=== PATIENT | female | born 1935 | race Native Hawaiian/Other Pacific Islander ===

== ENCOUNTER 2021-09-17 16:02 | Emergency (ER) | payer MEDICARE ==
[2021-09-17 16:09] VITALS: TEMP 97.5
--- NOTE | 2021-09-17 16:15 | ED ---
General Adult HPI - General Chief complaint: Abdominal Pain Stated complaint: Abd/L sided pain, PASQUALE Time Seen by Provider: 09/17/21 16:15 Source: patient Mode of arrival: wheelchair Limitations: no limitations - History of Present Illness Initial comments: Shante Ramirez a pleasant 85-year-old female who presents the ER today with her daughter for evaluation of right flank and abdominal pain. Patient reports she began having pain in her right flank a week ago, she was putting a topical pain cream as well as heating pad on her back which seemed to help however the past week pain is progressed. Today patient states she couldn't even get out of bed which is very atypical for her so her daughter brought her in for evaluation. Patient describes the pain as being in the right flank traveling around the epigastrium. No associated nausea vomiting diarrhea or change in bowel or bladder habits. She does report worse pain with deep inspiration. No shortness of breath, she is supposed wears supplemental oxygen is not compliant with this at home. - Related Data Home Medications Medication Instructions Recorded Confirmed Fluticasone/Umeclidin/Vilanter 1 puff INHALATION RT-DAILY 09/17/21 09/17/21 [Trelegy Ellipta 100-62.5-25] Levothyroxine Sodium [Synthroid] 100 mcg PO DAILY 09/17/21 09/17/21 Previous Rx's Medication Instructions Recorded Lidocaine [Lidoderm 5% Patch] 1 patch TRANSDERM DAILY #30 patch 09/17/21 Allergies Allergy/AdvReac Type Severity Reaction Status Date / Time No Known Allergies Allergy Verified 09/17/21 19:58 Review of Systems ROS Statement: Those systems with pertinent positive or pertinent negative responses have been documented in the HPI. ROS Other: All systems not noted in ROS Statement are negative. Past Medical History Past Medical History: COPD, Thyroid Disorder History of Any Multi-Drug Resistant Organisms: None Reported Past Surgical History: No Surgical Hx Reported Past Psychological History: No Psychological Hx Reported Smoking Status: Former smoker Past Alcohol Use History: None Reported Past Drug Use History: None Reported General Exam - General Exam Comments Initial Comments: Physical Exam GENERAL: Patient is well-developed and well-nourished. Patient is nontoxic and well-hydrated and is in no distress. HENT: Normocephalic, Atraumatic. EYES: PERRL, EOMI PULMONARY: Unlabored respirations. No audible rales rhonchi or wheezing was noted. CARDIOVASCULAR: There is a regular rate and rhythm ABDOMEN: Soft and nontender with normal bowel sounds. SKIN: Skin is clear with no lesions or rashes and otherwise unremarkable. : Deferred NEUROLOGIC: Patient is alert and oriented x3. Moving all extremities spontaneously MUSCULOSKELETAL: Normal extremities with adequate strength and full range of motion. No lower extremity swelling or edema. No calf tenderness. PSYCHIATRIC: Normal psychiatric evaluation. Limitations: no limitations Course Vital Signs 09/17/21 09/17/21 09/17/21 16:04 18:52 21:53 Temperature 97.5 F L Pulse Rate 95 80 70 Respiratory 24 22 14 Rate Blood Pressure 156/83 126/78 143/88 O2 Sat by Pulse 93 L 96 97 Oximetry EKG Findings - EKG Comments: EKG Findings:: EKG was obtained at 1615 rate is 70 to have a sinus, a short OK at 119, QRS [address] elevations or depressions no evidence of acute ischemia or infarction. Medical Decision Making - Medical Decision Making Patient was seen and evaluated, history is obtained from the patient and daughters at bedside Labs x-rays and CT scans were ordered and results with no acute findings Results were discussed with the patient and family who expressed relief patient comfortable with plan for Lidoderm patches outpatient follow-up with primary care and possibly a spine surgeon as she suspects that she may have discussed di sease as the cause of her pain. - Lab Data Result diagrams: 09/17/21 16:59 09/17/21 16:59 Lab Results 09/17/21 09/17/21 09/17/21 Range/Units 16:59 16:59 16:59 WBC 5.9 (3.8-10.6) k/uL RBC 4.44 (3.80-5.40) m/uL Hgb 13.7 (11.4-16.0) gm/dL Hct 41.6 (34.0-46.0) % MCV 93.7 (80.0-100.0) fL MCH 30.9 (25.0-35.0) pg MCHC 33.0 (31.0-37.0) g/dL RDW 14.2 (11.5-15.5) % Plt Count 326 (150-450) k/uL MPV 6.9 Neutrophils % 61 % Lymphocytes % 29 % Monocytes % 7 % Eosinophils % 1 % Basophils % 0 % Neutrophils # 3.6 (1.3-7.7) k/uL Lymphocytes # 1.7 (1.0-4.8) k/uL Monocytes # 0.4 (0-1.0) k/uL Eosinophils # 0.1 (0-0.7) k/uL Basophils # 0.0 (0-0.2) k/uL Sodium 131 L (137-145) mmol/L Potassium 4.5 (3.5-5.1) mmol/L Chloride 95 L (98-107) mmol/L Carbon Dioxide 34 H (22-30) mmol/L Anion Gap 2 mmol/L BUN 9 (7-17) mg/dL Creatinine 0.60 (0.52-1.04) mg/dL Est GFR (CKD-EPI)AfAm >90 (>60 ml/min/1.73 sqM) Est GFR (CKD-EPI)NonAf 83 (>60 ml/min/1.73 sqM) Glucose 98 (74-99) mg/dL Plasma Lactic Acid Rolnad 0.8 (0.7-2.0) mmol/L Calcium 8.9 (8.4-10.2) mg/dL Total Bilirubin 0.2 (0.2-1.3) mg/dL AST 24 (14-36) U/L ALT 12 (4-34) U/L Alkaline Phosphatase 77 (38-126) U/L Total Protein 6.4 (6.3-8.2) g/dL Albumin 3.9 (3.5-5.0) g/dL Lipase 34 (23-300) U/L Urine Color Urine Appearance (Clear) Urine pH (5.0-8.0) Ur Specific [place] (1.001-1.035) Urine Protein (Negative) Urine Glucose (UA) (Negative) Urine Ketones (Negative) Urine Blood (Negative) Urine Nitrite (Negative) Urine Bilirubin (Negative) Urine Urobilinogen (<2.0) mg/dL Ur Leukocyte Esterase (Negative) Urine RBC (0-5) /hpf Urine WBC (0-5) /hpf Ur Squamous Epith Cells (0-4) /hpf Urine Bacteria (None) /hpf 09/17/21 Range/Units 18:16 WBC (3.8-10.6) k/uL RBC (3.80-5.40) m/uL Hgb (11.4-16.0) gm/dL Hct (34.0-46.0) % MCV (80.0-100.0) fL MCH (25.0-35.0) pg MCHC (31.0-37.0) g/dL RDW (11.5-15.5) % Plt Count (150-450) k/uL MPV Neutrophils % % Lymphocytes % % Monocytes % % Eosinophils % % Basophils % % Neutrophils # (1.3-7.7) k/uL Lymphocytes # (1.0-4.8) k/uL Monocytes # (0-1.0) k/uL Eosinophils # (0-0.7) k/uL Basophils # (0-0.2) k/uL Sodium (137-145) mmol/L Potassium (3.5-5.1) mmol/L Chloride (98-107) mmol/L Carbon Dioxide (22-30) mmol/L Anion Gap mmol/L BUN (7-17) mg/dL Creatinine (0.52-1.04) mg/dL Est GFR (CKD-EPI)AfAm (>60 ml/min/1.73 sqM) Est GFR (CKD-EPI)NonAf (>60 ml/min/1.73 sqM) Glucose (74-99) mg/dL Plasma Lactic Acid Roland (0.7-2.0) mmol/L Calcium (8.4-10.2) mg/dL Total Bilirubin (0.2-1.3) mg/dL AST (14-36) U/L ALT (4-34) U/L Alkaline Phosphatase (38-126) U/L Total Protein (6.3-8.2) g/dL Albumin (3.5-5.0) g/dL Lipase (23-300) U/L Urine Color Light Yellow Urine Appearance Clear (Clear) Urine pH 6.5 (5.0-8.0) Ur Specific [place] 1.008 (1.001-1.035) Urine Protein Negative (Negative) Urine Glucose (UA) Negative (Negative) Urine Ketones Negative (Negative) Urine Blood Small H (Negative) Urine Nitrite Negative (Negative) Urine Bilirubin Negative (Negative) Urine Urobilinogen <2.0 (<2.0) mg/dL Ur Leukocyte Esterase Negative (Negative) Urine RBC 3 (0-5) /hpf Urine WBC 1 (0-5) /hpf Ur Squamous Epith Cells 2 (0-4) /hpf Urine Bacteria Rare H (None) /hpf Disposition Clinical Impression: Back pain, Abdominal pain Disposition: HOME SELF-CARE Condition: Stable Additional Instructions: Follow up with primary care, consider follow up with a spine doctor for pain management Prescriptions: Lidocaine [Lidoderm 5% Patch] 1 patch TRANSDERM DAILY #30 patch Is patient prescribed a controlled substance at d/c from ED?: No Referrals: Tameka Mendosa MD [Primary Care Provider] - 1-2 days Hank Jimenez DO [Doctor of Osteopathic Medicine] - 1-2 days Kim Patton DO [Doctor of Osteopathic Medicine] - 1-2 days
[2021-09-17] MEDS ORDERED: SODIUM CHLORIDE 0.9% 500 ML 500 ML IV STA (16:45)
[2021-09-17] MEDS ORDERED: ONDANSETRON 4 MG/2 ML VIAL IVP STA (16:46)
[2021-09-17] MEDS ORDERED: MORPHINE SULFATE 4 MG/ML SYRINGE IVP STA (16:46)
[2021-09-17 17:05] LABS: Basophils % (A) 0 %; Eosinophils # (A) 0.1 k/uL (0-0.7); Eosinophils % (A) 1 %; HCT 41.6 % (34.0-46.0); HGB 13.7 gm/dL (11.4-16.0); Lymphocytes # (A) 1.7 k/uL (1.0-4.8); Lymphocytes % (A) 29 %; MCH 30.9 pg (25.0-35.0); MCV 93.7 fL (80.0-100.0); Mean Platelet Volume 6.9; Monocytes # (A) 0.4 k/uL (0-1.0); Monocytes % (A) 7 %; Neutrophils # (A) 3.6 k/uL (1.3-7.7); Neutrophils % (A) 61 %; Platelet Count 326 k/uL (150-450); RBC 4.44 m/uL (3.80-5.40); RDW 14.2 % (11.5-15.5); WBC 5.9 k/uL (3.8-10.6)
[2021-09-17 17:20] LABS: ALT 12 U/L (4-34); AST 24 U/L (14-36); African American GFR (CKD) >90 (>60 ml/min/1.73 sqM); Albumin 3.9 g/dL (3.5-5.0); Alkaline Phosphatase 77 U/L (38-126); Anion Gap 2 mmol/L; Blood Urea Nitrogen 9 mg/dL (7-17); Calcium 8.9 mg/dL (8.4-10.2); Carbon Dioxide 34 mmol/L (22-30); Chloride 95 mmol/L (98-107); Glucose 98 mg/dL (74-99); Lipase 34 U/L (23-300); Non-African American GFR(CKD) 83 (>60 ml/min/1.73 sqM); Potassium 4.5 mmol/L (3.5-5.1); Sodium 131 mmol/L (137-145); Total Bilirubin 0.2 mg/dL (0.2-1.3); Total Protein 6.4 g/dL (6.3-8.2)
--- NOTE | 2021-09-17 17:34 | XR ---
EXAMINATION TYPE: XR KUB DATE OF EXAM: 09/17/2021 5:19 PM INDICATION: Patient age:Female; 85 years old; Reason for study: abdominal pain; COMPARISON: None. TECHNIQUE: One radiographic view of the abdomen was obtained. FINDINGS: Multiple metallic screws are seen projecting over the sacrum. Surgical clips are in the rig ht upper quadrant. The bowel gas pattern is nonspecific without dilated loops of small or large bowel . The osseous structures are intact. No abnormal calcifications are present. Fecal material and gas are demonstrated throughout the colon and rectum. Multilevel disc degeneration changes are seen thro ughout the spine with scoliosis convex L2. IMPRESSION: Nonspecific bowel gas pattern without radiographic evidence for acute process.
--- NOTE | 2021-09-17 17:39 | XR ---
EXAMINATION TYPE: XR chest 2V DATE OF EXAM: 09/17/2021 5:19 PM COMPARISON: None TECHNIQUE: XR chest 2V Frontal and lateral views of the chest. CLINICAL INDICATION:Female, 85 years old with history of abdominal pain; FINDINGS: Lungs/Pleura: There is flattening of the diaphragm with increased lucency of the lungs. No evidence o f pneumothorax, pleural effusion or focal consolidation. Pulmonary vascularity: Unremarkable. Heart/mediastinum: Cardiomediastinal silhouette is unremarkable. Musculoskeletal: No acute osseous pathology. IMPRESSION: 1. No acute cardiopulmonary disease process. 2. Moderate to severe COPD changes.
[2021-09-17 18:47] LABS: Appearance,Urine Clear (Clear); Bacteria,Urine Rare /hpf; Bilirubin,Urine Negative (Negative); Blood,Urine Small (Negative); Color,Urine Light Yellow; Glucose,Urine (UA) Negative (Negative); Ketones,Urine Negative (Negative); Leukocyte Esterase,Urine Negative (Negative); Nitrite,Urine Negative (Negative); PH, Urine 6.5 (5.0-8.0); Protein,Urine Negative (Negative); RBC,Urine 3 /hpf (0-5); Specific Gravity,Urine 1.008 (1.001-1.035); Squamous Epithelial Cell,Urine 2 /hpf (0-4); Urobilinogen,Urine <2.0 mg/dL (<2.0); WBC,Urine 1 /hpf (0-5)
--- NOTE | 2021-09-17 19:26 | CT ---
EXAMINATION TYPE: CT abdomen pelvis w con DATE OF EXAM: 09/17/2021 COMPARISON: 05/10/2014 HISTORY: Abdominal pain CT DLP: 500 mGycm Automated exposure control for dose reduction was used. TECHNIQUE: Helical acquisition of images was performed from the lung bases through the pelvis. CONTRAST: Performed without Oral Contrast and with IV Contrast, patient injected with 100 mL of Isovue 300. FINDINGS: LUNG BASES: No significant abnormality is appreciated. LIVER/GB: No acute abnormality is appreciated. Cholecystectomy. Stable mild prominence of the common bile duct measuring 6 mm in diameter. PANCREAS: No significant abnormality is seen. SPLEEN: No significant abnormality is seen. ADRENALS: No significant abnormality is seen. KIDNEYS: No significant abnormality is seen. FREE AIR: No free air is visualized. RETROPERITONEAL ADENOPATHY: None visualized REPRODUCTIVE ORGANS: No significant abnormality is seen URINARY BLADDER: No significant abnormality is seen. PELVIC ADENOPATHY: None visualized. OSSEOUS STRUCTURES: No acute abnormality is seen. Posterior fixation screws at L5 through S3 level s een. Moderate to severe lumbar spondylosis. BOWEL: No significant abnormality is seen. OTHER: None IMPRESSION: NO DEFINITE ACUTE ABNORMALITY. CHRONIC AND INCIDENTAL FINDINGS ABOVE.
[2021-09-17] MEDS ORDERED: LIDOCAINE 5% PATCH TOPICAL STA (20:52)
[2021-09-17 21:58] VITALS: BP 143/88; PULSE 70; RESP 14
== END 2021-09-17 22:11 | disposition home or self-care (01) ==
LOC: EDBD → MERGE 16:02 → EC 16:02
DX: R10.9 Unspecified abdominal pain (principal); M54.50 Low back pain, unspecified; J44.9 Chronic obstructive pulmonary disease, unspecified; E07.9 Disorder of thyroid, unspecified; Z79.1 Long term (current) use of non-steroidal anti-inflammatories (NSAID); Z87.891 Personal history of nicotine dependence
CPT/HCPCS: 36415; 93005; 80053; 83605; 83690; 85025; 81001; 71046; 74018; 74177; 96374; 96375; 99284; J2270; J2405; Q9967

== ENCOUNTER 2021-09-20 13:58 | Inpatient (IN) | payer MEDICARE ==
[2021-09-20] MEDS ORDERED: ALBUTEROL NEBULIZED 2.5 MG/3 ML INHALATION STA (14:09)
[2021-09-20] MEDS ORDERED: methylPREDNISolone SOD SUCCI 125 MG/2 ML VIAL IV STA (14:09)
[2021-09-20] MEDS ORDERED: IPRATROPIUM 0.5 MG/2.5 ML NEBU INHALATION STA (14:09)
[2021-09-20 14:28] LABS: Basophils % (A) 0 %; Eosinophils % (A) 0 %; HCT 41.4 % (34.0-46.0); HGB 13.1 gm/dL (11.4-16.0); Lymphocytes # (A) 0.5 k/uL (1.0-4.8); Lymphocytes % (A) 4 %; MCH 30.4 pg (25.0-35.0); MCHC 31.7 g/dL (31.0-37.0); Mean Platelet Volume 7.3; Monocytes # (A) 0.5 k/uL (0-1.0); Monocytes % (A) 5 %; Neutrophils # (A) 10.1 k/uL (1.3-7.7); Neutrophils % (A) 90 %; Platelet Count 285 k/uL (150-450); RBC 4.31 m/uL (3.80-5.40); RDW 14.4 % (11.5-15.5); WBC 11.2 k/uL (3.8-10.6)
--- NOTE | 2021-09-20 14:29 | ED ---
General Adult HPI - General Chief complaint: Shortness of Breath Stated complaint: SOB Time Seen by Provider: 09/20/21 14:03 Source: patient, EMS, RN notes reviewed, old records reviewed Mode of arrival: EMS - History of Present Illness Initial comments: 85-year-old female history of oxygen dependent COPD presents with progressive dyspnea over the past several weeks. There's been no reported cough. Patient denies central chest pain. She has some chronic back pain which is unchanged and bilateral shoulder pain. No fever. No lower extremity pain or swelling. - Related Data Home Medications Medication Instructions Recorded Confirmed Fluticasone/Umeclidin/Vilanter 1 puff INHALATION RT-DAILY 09/17/21 09/20/21 [Trelegy Ellipta 100-62.5-25] Levothyroxine Sodium [Synthroid] 100 mcg PO DAILY 09/17/21 09/20/21 Cyclobenzaprine [Flexeril] 5 mg PO TID 09/20/21 09/20/21 HYDROcodone/APAP 5-325MG [[place] 1 tab PO QID 09/20/21 09/20/21 5-325] Allergies Allergy/AdvReac Type Severity Reaction Status Date / Time No Known Allergies Allergy Verified 09/20/21 15:41 Review of Systems ROS Statement: Those systems with pertinent positive or pertinent negative responses have been documented in the HPI. ROS Other: All systems not noted in ROS Statement are negative. Past Medical History Past Medical History: COPD, Thyroid Disorder Additional Past Medical History / Comment(s): irregular heart beat History of Any Multi-Drug Resistant Organisms: None Reported Past Surgical History: Back Surgery, Cholecystectomy, Hysterectomy, No Surgical Hx Reported Additional Past Surgical History / Comment(s): thyroid partial removal Past Anesthesia/Blood Transfusion Reactions: No Reported Reaction Past Psychological History: No Psychological Hx Reported Smoking Status: Former smoker Past Alcohol Use History: None Reported, Occasional Past Drug Use History: None Reported - Past Family History Mother Family Medical History: Cancer Additional Family Medical History / Comment(s): Breast cancer, stomach cancer General Exam General appearance: alert, in distress Head exam: Present: atraumatic, normocephalic Eye exam: Present: normal appearance, PERRL ENT exam: Present: normal exam Neck exam: Present: normal inspection. Absent: tenderness, meningismus Respiratory exam: Present: respiratory distress, accessory muscle use, decreased breath sounds Cardiovascular Exam: Present: regular rate, normal rhythm GI/Abdominal exam: Present: soft. Absent: distended, tenderness, guarding Extremities exam: Present: normal inspection, normal capillary refill. Absent: pedal edema, calf tenderness Neurological exam: Present: alert, oriented X3, CN II-XII intact. Absent: motor sensory deficit Psychiatric exam: Present: normal affect, normal mood Skin exam: Present: warm, dry, intact. Absent: cyanosis, diaphoretic Course Vital Signs 09/20/21 09/20/21 09/20/21 14:01 14:42 15:00 Temperature 98.1 F Pulse Rate 91 92 106 H Respiratory 18 Rate Blood Pressure O2 Sat by Pulse 92 L Oximetry Fraction of Inspired Oxygen (FIO2) 09/20/21 09/20/21 09/20/21 15:06 15:08 15:18 Temperature Pulse Rate 114 H Respiratory 26 H 28 H Rate Blood Pressure O2 Sat by Pulse 92 L Oximetry Fraction of 30 Inspired Oxygen (FIO2) 09/20/21 15:27 Temperature Pulse Rate 115 H Respiratory 24 Rate Blood Pressure 136/81 O2 Sat by Pulse 97 Oximetry Fraction of Inspired Oxygen (FIO2) EKG Findings - EKG Comments: EKG Findings:: EKG: Sinus rhythm with sinus arrhythmia, no ST segment elevation, rate of 95, ID interval 113, QRS duration 82, QTC 345 Medical Decision Making - Medical Decision Making 85-year-old female presenting in respiratory distress. She is an oxygen dependent COPD patient. She does not wear her oxygen as prescribed according to her daughter. She is in moderate to severe distress upon arrival. X-ray negative for focal pneumonia or pneumothorax. She is placed on BiPAP for respiratory support as well as given albuterol, Atrovent, IV steroids upon initial presentation. She has some upper shoulder pain with no central chest pain. Her EKG is sinus rhythm without ST segment elevation or definitive signs of ischemia. Her troponin is elevated at 0.17. This may be secondary to this prolonged hypoxia versus an acute event. Given the fact that this is new for the patient she started on heparin, given aspirin in the emergency department. She will be continued on respiratory support with BiPAP. She'll be admitted to Dr. Mcleod who is aware of the patient with both pulmonology and cardiology consultation. - Lab Data Result diagrams: 09/20/21 14:14 09/20/21 14:14 Lab Results 09/20/21 09/20/21 09/20/21 Range/Units 14:14 14:14 14:14 WBC 11.2 H (3.8-10.6) k/uL RBC 4.31 (3.80-5.40) m/uL Hgb 13.1 (11.4-16.0) gm/dL Hct 41.4 (34.0-46.0) % MCV 96.0 (80.0-100.0) fL MCH 30.4 (25.0-35.0) pg MCHC 31.7 (31.0-37.0) g/dL RDW 14.4 (11.5-15.5) % Plt Count 285 (150-450) k/uL MPV 7.3 Neutrophils % 90 % Lymphocytes % 4 % Monocytes % 5 % Eosinophils % 0 % Basophils % 0 % Neutrophils # 10.1 H (1.3-7.7) k/uL Lymphocytes # 0.5 L (1.0-4.8) k/uL Monocytes # 0.5 (0-1.0) k/uL Eosinophils # 0.0 (0-0.7) k/uL Basophils # 0.0 (0-0.2) k/uL PT 11.1 (9.0-12.0) sec INR 1.0 (<1.2) APTT 21.3 L (22.0-30.0) sec Sodium 126 L (137-145) mmol/L Potassium 5.2 H (3.5-5.1) mmol/L Chloride 87 L (98-107) mmol/L Carbon Dioxide 32 H (22-30) mmol/L Anion Gap 7 mmol/L BUN 27 H (7-17) mg/dL Creatinine 0.84 (0.52-1.04) mg/dL Est GFR (CKD-EPI)AfAm 73 (>60 ml/min/1.73 sqM) Est GFR (CKD-EPI)NonAf 63 (>60 ml/min/1.73 sqM) Glucose 200 H (74-99) mg/dL Plasma Lactic Acid Rolnad (0.7-2.0) mmol/L Calcium 9.2 (8.4-10.2) mg/dL Magnesium 1.8 (1.6-2.3) mg/dL Total Bilirubin 0.5 (0.2-1.3) mg/dL AST 56 H (14-36) U/L ALT 40 H (4-34) U/L Alkaline Phosphatase 127 H (38-126) U/L Troponin I (0.000-0.034) ng/mL NT-Pro-B Natriuret Pep pg/mL Total Protein 6.8 (6.3-8.2) g/dL Albumin 4.2 (3.5-5.0) g/dL 09/20/21 09/20/21 09/20/21 Range/Units 14:14 14:14 14:14 WBC (3.8-10.6) k/uL RBC (3.80-5.40) m/uL Hgb (11.4-16.0) gm/dL Hct (34.0-46.0) % MCV (80.0-100.0) fL MCH (25.0-35.0) pg MCHC (31.0-37.0) g/dL RDW (11.5-15.5) % Plt Count (150-450) k/uL MPV Neutrophils % % Lymphocytes % % Monocytes % % Eosinophils % % Basophils % % Neutrophils # (1.3-7.7) k/uL Lymphocytes # (1.0-4.8) k/uL Monocytes # (0-1.0) k/uL Eosinophils # (0-0.7) k/uL Basophils # (0-0.2) k/uL PT (9.0-12.0) sec INR (<1.2) APTT (22.0-30.0) sec Sodium (137-145) mmol/L Potassium (3.5-5.1) mmol/L Chloride (98-107) mmol/L Carbon Dioxide (22-30) mmol/L Anion Gap mmol/L BUN (7-17) mg/dL Creatinine (0.52-1.04) mg/dL Est GFR (CKD-EPI)AfAm (>60 ml/min/1.73 sqM) Est GFR (CKD-EPI)NonAf (>60 ml/min/1.73 sqM) Glucose (74-99) mg/dL Plasma Lactic Acid Roland 2.5 H* (0.7-2.0) mmol/L Calcium (8.4-10.2) mg/dL Magnesium (1.6-2.3) mg/dL Total Bilirubin (0.2-1.3) mg/dL AST (14-36) U/L ALT (4-34) U/L Alkaline Phosphatase (38-126) U/L Troponin I 0.172 H* (0.000-0.034) ng/mL NT-Pro-B Natriuret Pep 58888 pg/mL Total Protein (6.3-8.2) g/dL Albumin (3.5-5.0) g/dL Critical Care Time Critical Care Time: Yes Total Critical Care Time: 35 Disposition Clinical Impression: Acute exacerbation of chronic obstructive pulmonary disease, NSTEMI (non-ST elevated myocardial infarction) Disposition: ADMITTED IP TO THIS HOSP Condition: Stable Is patient prescribed a controlled substance at d/c from ED?: No Referrals: Tameka Mendosa MD [Primary Care Provider] - 1-2 days Time of Disposition: 16:30
[2021-09-20 14:37] LABS: Albumin 4.2 g/dL (3.5-5.0); Calcium 9.2 mg/dL (8.4-10.2); Magnesium 1.8 mg/dL (1.6-2.3); Potassium 5.2 mmol/L (3.5-5.1); Total Bilirubin 0.5 mg/dL (0.2-1.3); Total Protein 6.8 g/dL (6.3-8.2)
--- NOTE | 2021-09-20 14:37 | XR ---
EXAMINATION TYPE: XR chest 1V portable DATE OF EXAM: 09/20/2021 COMPARISON: 09/17/2021, 12/08/2015 INDICATION: Difficulty in breathing TECHNIQUE: Single frontal view of the chest is obtained. FINDINGS: The heart size is normal. The pulmonary vasculature is normal. Small density remains present at the left apex. No suspicious focal consolidations are evident. IMPRESSION: 1. No acute pulmonary process.
[2021-09-20 14:52] LABS: Prothrombin Time 11.1 sec (9.0-12.0)
[2021-09-20 15:00] LABS: Partial Thromboplastin Time 21.3 sec (22.0-30.0)
[2021-09-20] MEDS ORDERED: HEPARIN SODIUM 1,000 UN/ML (10ML VL) IV PRN (15:09)
[2021-09-20] MEDS ORDERED: ASPIRIN 325 MG TAB PO STA (15:09)
[2021-09-20] MEDS ORDERED: HEPARIN SODIUM 1,000 UN/ML (10ML VL) IV ONE (15:09)
[2021-09-20] MEDS: HEPARIN SOD,PORK IN 0.45% NACL 25,000 UNIT in 0.45% NACL 1 250ML.BAG IV SCH (15:26)
[2021-09-20] MEDS: HYDROcodone/APAP 5-325MG 1 EACH TAB PO SCH ×2 (17:42→22:44)
[2021-09-20] MEDS: methylPREDNISolone SOD SUCCI 125 MG/2 ML VIAL IV SCH ×2 (17:43→22:55)
--- NOTE | 2021-09-20 18:01 | HP ---
HISTORY AND PHYSICAL CHIEF COMPLAINT: Shortness of breath. HISTORY OF PRESENT ILLNESS: This 85-year-old woman with a past medical history of COPD, thyroid problems and atrial fibrillation, being followed by Tameka De La Cruz in the outpatient setting, was complaining of shortness of breath for the past several days. Because of increasing shortness of breath, EMS was called. The patient was taken to the ER. The patient was on 15 L oxygen and subsequently patient was titrated to 2 L nasal cannula and BiPAP was also initiated. Troponins were also found elevated. BiPAP settings are 6 and 12. The troponins were found to be 0.172; otherwise the chest x-ray, which was personally reviewed by me, showed no acute pulmonary process. Patient was admitted for further evaluation and treatment. Currently the patient is on BiPAP, unable to provide a detailed history. Most of the history is taken from my discussion with the ER physician and discussion with staff as well as review of the chart. PAST MEDICAL HISTORY: History of COPD, thyroid problems, atrial fibrillation. HOME MEDICATIONS: Reviewed. They include Synthroid. Doses and other medications are reviewed. ALLERGIES: NONE. Family history, social history and review of systems could not be taken. Per chart, breast cancer and stomach cancer in the family. PHYSICAL EXAMINATION: Pulse is 106, blood pressure 133/81, respiration 20, temperature normal, pulse ox 94% on BiPAP. HEENT: Conjunctivae normal. NECK: No jugular venous distention. CARDIOVASCULAR: S1, S2 muffled. RESPIRATION: Breath sounds diminished at the bases. Bilateral scattered rhonchi and crackles. Chest emphysematous. ABDOMEN: Soft, nontender. LEGS: No edema. No swelling. NERVOUS SYSTEM: No focal deficit. SKIN: No ulcer, rash, bleeding. LABS: Reviewed. WBC 11.2. Other labs are reviewed. ASSESSMENT: 1. Chronic obstructive pulmonary disease, acute exacerbation, with acute hypoxic respiratory failure. 2. Elevated troponin 0.172. Rule out acute [id number]-elevation myocardial infarction. 3. Hyponatremia. 4. Hyperkalemia. 5. Hypothyroidism. 6. History of atrial fibrillation. 7. History of cholecystectomy. RECOMMENDATIONS AND DISCUSSION: In this 85-year-old woman who presented with multiple complex medical issues, we will monitor the patient closely. Would recommend intensive bronchodilator treatment and empiric antibiotics, pulmonary consultation, IV steroids. Closely monitor. Cardiology consultation for elevated troponin. Two-D echo also will be ordered. Overall prognosis guarded because of multiple complex issues, as mentioned earlier. Discussed with the patient. Further recommendations to follow. A copy of this dictation is being forwarded to Dr. Tameka Mendosa, who is the primary physician. Old charts are reviewed. MMODL / IJN: [id number] /
[2021-09-20] MEDS ORDERED: SODIUM CHLORIDE 0.9% 500 ML 500 ML IV ONE (18:40)
[2021-09-20] MEDS: FORMOTEROL FUMARATE 20 MCG/2 ML NEBU INHALATION SCH (19:13)
[2021-09-20] MEDS: IPRATROPIUM-ALBUTEROL 3 ML NEB INHALATION SCH (19:14)
[2021-09-20] MEDS: BUDESONIDE 1 MG/2 ML NEBU INHALATION SCH (19:14)
[2021-09-20] MEDS: CYCLOBENZAPRINE 5 MG TAB PO SCH (22:45)
[2021-09-20] MEDS: IPRATROPIUM-ALBUTEROL 3 ML NEB INHALATION PRN (23:45)
[2021-09-21 04:09] LABS: Basophils % (A) 0 %; Eosinophils % (A) 0 %; HGB 12.3 gm/dL (11.4-16.0); Lymphocytes # (A) 0.3 k/uL (1.0-4.8); Lymphocytes % (A) 4 %; MCH 29.9 pg (25.0-35.0); MCHC 30.7 g/dL (31.0-37.0); MCV 97.5 fL (80.0-100.0); Mean Platelet Volume 7.5; Monocytes # (A) 0.4 k/uL (0-1.0); Monocytes % (A) 5 %; Neutrophils # (A) 7.1 k/uL (1.3-7.7); Neutrophils % (A) 92 %; Platelet Count 280 k/uL (150-450); RDW 13.9 % (11.5-15.5); WBC 7.7 k/uL (3.8-10.6)
[2021-09-21] MEDS: IPRATROPIUM-ALBUTEROL 3 ML NEB INHALATION PRN (04:13)
[2021-09-21 04:23] LABS: Partial Thromboplastin Time 51.9 sec (22.0-30.0); Prothrombin Time 10.5 sec (9.0-12.0)
[2021-09-21 04:30] LABS: African American GFR (CKD) >90 (>60 ml/min/1.73 sqM); Anion Gap 4 mmol/L; Blood Urea Nitrogen 24 mg/dL (7-17); Calcium 8.8 mg/dL (8.4-10.2); Carbon Dioxide 31 mmol/L (22-30); Chloride 91 mmol/L (98-107); Glucose 188 mg/dL (74-99); Non-African American GFR(CKD) 79 (>60 ml/min/1.73 sqM); Potassium 5.1 mmol/L (3.5-5.1); Sodium 126 mmol/L (137-145)
[2021-09-21 06:16] LABS: Glucose,Whole Blood 176 mg/dL (75-99)
[2021-09-21] MEDS: INSULIN ASPART (NovoLOG) 100 UNIT/ML VIAL SQ SCH ×4 (06:33→21:22)
[2021-09-21] MEDS: methylPREDNISolone SOD SUCCI 125 MG/2 ML VIAL IV SCH ×4 (06:33→23:43)
[2021-09-21] MEDS: PANTOPRAZOLE 40 MG TABLET PO SCH (06:33)
[2021-09-21] MEDS: FORMOTEROL FUMARATE 20 MCG/2 ML NEBU INHALATION SCH ×2 (07:54→19:38)
[2021-09-21] MEDS: IPRATROPIUM-ALBUTEROL 3 ML NEB INHALATION SCH ×4 (07:54→19:38)
[2021-09-21] MEDS: BUDESONIDE 1 MG/2 ML NEBU INHALATION SCH ×2 (07:54→19:38)
[2021-09-21] MEDS: HYDROcodone/APAP 5-325MG 1 EACH TAB PO SCH ×4 (09:06→21:21)
[2021-09-21] MEDS: CYCLOBENZAPRINE 5 MG TAB PO SCH ×3 (09:07→21:22)
[2021-09-21] MEDS: LEVOTHYROXINE 100 MCG TAB PO SCH (09:07)
--- NOTE | 2021-09-21 10:50 | P.CRDCN ---
History of Present Illness Consult date: 09/21/21 History of present illness: HISTORY OF PRESENT ILLNESS: This is a 85-year-old female with a past medical history significant for COPD with home oxygen use and hypothyroidism. Patient does not follow with a head baker. We have been asked to see the patient in consultation for elevated troponins. Patient examined at the bedside. patient presented to the hospital with a chief shortness breath. She denies chest pain or pressure. She denies dizziness or lightheadedness. The patient was found to have abnormal troponins and was started on IV heparin. This morning she is tachycardic. * EKG reveals sinus mechanism with no signs of acute ischemia * Chest xray negative for acute process * Laboratory data: WBC 7.7. Hemoglobin 12.3. Platelet count 280. Sodium 126. Potassium 5.1. BUN 24. Creatinine 0.69. Lactic acid 2.2. Troponin 0.172. 0.143. 0.130. * Current home cardiac medications include none REVIEW OF SYSTEMS: At the time of my exam: CONSTITUTIONAL: Denies fever or chills. HEENT: Denies blurred vision, vision changes, or eye pain. Denies hemoptysis CARDIOVASCULAR: Denies chest pain. Denies orthopnea. Denies PND. Denies palpitations RESPIRATORY: Denies shortness of breath. GASTROINTESTINAL: Denies abdominal pain. Denies nausea or vomiting. HEMATOLOGIC: Denies bleeding disorders. GENITOURINARY: Denies any blood in urine. SKIN: Denies pruitis. Denies rash. PHYSICAL EXAM: VITAL SIGNS: Reviewed. GENERAL: Well-developed in no acute distress. HEENT: Head is normocephalic. Pupils are equal, round. Sclerae anicteric. Mucous membranes of the mouth are moist. Neck supple. No JVD or thyromegaly LUNGS: Respirations even and unlabored. Lungs essentially clear to auscultation bilaterally. HEART: Regular rate and rhythm. S1 and S2 heard. ABDOMEN: Soft. Nondistended. Nontender. EXTREMITIES: Normal range of motion. No clubbing or cyanosis. Peripheral pulses intact. No lower extremity edema NEUROLOGIC: Awake and alert. Oriented x 3. ASSESSMENT: Shortness of breath Acute on chronic hypoxic respiratory failure History of COPD with home oxygen use Abnormal troponins, may be type II [place], cannot rule out NSTEMI PLAN: Obtain repeat EKG Continue IV heparin Obtain 2-D echo to assess cardiac structure and function Further recommendations pending patient course Nurse practitioner note has been reviewed by physician. Signing provider agrees with the documented findings, assessment, and plan of care. Past Medical History Past Medical History: COPD, Thyroid Disorder Additional Past Medical History / Comment(s): irregular heart beat History of Any Multi-Drug Resistant Organisms: None Reported Past Surgical History: Back Surgery, Cholecystectomy, Hysterectomy, No Surgical Hx Reported Additional Past Surgical History / Comment(s): thyroid partial removal Past Anesthesia/Blood Transfusion Reactions: No Reported Reaction Past Psychological History: No Psychological Hx Reported Smoking Status: Former smoker Past Alcohol Use History: None Reported, Occasional Past Drug Use History: None Reported - Past Family History Mother Family Medical History: Cancer Additional Family Medical History / Comment(s): Breast cancer, stomach cancer Father Family Medical History: Diabetes Mellitus, Myocardial Infarction ([place]) Medications and Allergies Home Medications Medication Instructions Recorded Confirmed Type Fluticasone/Umeclidin/Vilanter 1 puff INHALATION RT-DAILY 09/17/21 09/20/21 History [Trelegy Ellipta 100-62.5-25] Levothyroxine Sodium [Synthroid] 100 mcg PO DAILY 09/17/21 09/20/21 History Cyclobenzaprine [Flexeril] 5 mg PO TID 09/20/21 09/20/21 History HYDROcodone/APAP 5-325MG [[place] 1 tab PO QID 09/20/21 09/20/21 History 5-325] Allergies Allergy/AdvReac Type Severity Reaction Status Date / Time No Known Allergies Allergy Verified 09/20/21 15:41 Physical Exam Vitals: Vital Signs Temp Pulse Pulse Resp BP BP Pulse Ox 09/21/21 04:26 98 09/21/21 04:14 96 09/21/21 03:51 97.0 F L 108 H 18 128/70 95 09/21/21 00:05 09/21/21 00:00 97.4 F L 116 H 117 H 22 123/77 95 09/20/21 23:48 112 H 09/20/21 22:06 97.6 F 117 H 20 126/70 95 09/20/21 21:45 117 H 22 09/20/21 21:10 115 H 16 124/77 95 09/20/21 20:00 116 H 09/20/21 19:28 116 H 09/20/21 19:21 122 H 09/20/21 19:20 124 H 09/20/21 19:15 112 H 94 L 09/20/21 18:45 110 H 18 117/87 95 09/20/21 17:40 88 18 123/77 96 09/20/21 16:42 98 24 118/88 94 L 09/20/21 15:27 115 H 24 136/81 97 09/20/21 15:18 09/20/21 15:08 28 H 09/20/21 15:06 114 H 26 H 92 L 09/20/21 15:00 106 H 09/20/21 14:42 92 09/20/21 14:01 98.1 F 91 18 92 L FiO2 09/21/21 04:26 09/21/21 04:14 09/21/21 03:51 09/21/21 00:05 30 09/21/21 00:00 09/20/21 23:48 09/20/21 22:06 09/20/21 21:45 09/20/21 21:10 09/20/21 20:00 09/20/21 19:28 09/20/21 19:21 09/20/21 19:20 09/20/21 19:15 09/20/21 18:45 09/20/21 17:40 09/20/21 16:42 09/20/21 15:27 09/20/21 15:18 30 09/20/21 15:08 09/20/21 15:06 09/20/21 15:00 09/20/21 14:42 09/20/21 14:01 Intake and Output 09/20/21 09/21/21 09/21/21 22:59 06:59 14:59 Intake Total 33.117 10 Output Total 250 Balance 33.117 -240 Intake: IV 10 0.9 10 Intake, IV Titration 33.117 Amount Heparin Sod,Pork in 0.45% 33.117 NaCl 25,000 unit In 0.45 % NaCl 1 250ml.bag @ 12 UNITS/KG/HR 5.661 mls/hr IV .Q24H [facility] Rx#: [id number] Output: Urine 250 Other: Voiding Method External Catheter External Catheter Weight 47.174 kg 52 kg Results 09/21/21 03:51 09/21/21 03:51 Cardiac Enzymes 09/20/21 09/20/21 09/20/21 Range/Units 14:14 14:14 16:58 AST 56 H (14-36) U/L Troponin I 0.172 H* 0.143 H* (0.000-0.034) ng/mL 09/20/21 Range/Units 20:23 AST (14-36) U/L Troponin I 0.130 H* (0.000-0.034) ng/mL Coagulation 09/20/21 09/20/21 09/21/21 Range/Units 14:14 20:23 03:51 PT 11.1 10.5 (9.0-12.0) sec APTT 21.3 L 33.0 H 51.9 H (22.0-30.0) sec CBC 09/20/21 09/21/21 Range/Units 14:14 03:51 WBC 11.2 H 7.7 (3.8-10.6) k/uL RBC 4.31 4.10 (3.80-5.40) m/uL Hgb 13.1 12.3 (11.4-16.0) gm/dL Hct 41.4 40.0 (34.0-46.0) % Plt Count 285 280 (150-450) k/uL Comprehensive Metabolic Panel 09/20/21 09/21/21 Range/Units 14:14 03:51 Sodium 126 L 126 L (137-145) mmol/L Potassium 5.2 H 5.1 (3.5-5.1) mmol/L Chloride 87 L 91 L (98-107) mmol/L Carbon Dioxide 32 H 31 H (22-30) mmol/L BUN 27 H 24 H (7-17) mg/dL Creatinine 0.84 0.69 (0.52-1.04) mg/dL Glucose 200 H 188 H (74-99) mg/dL Calcium 9.2 8.8 (8.4-10.2) mg/dL AST 56 H (14-36) U/L ALT 40 H (4-34) U/L Alkaline Phosphatase 127 H (38-126) U/L Total Protein 6.8 (6.3-8.2) g/dL Albumin 4.2 (3.5-5.0) g/dL Current Medications Generic Name Dose Route Start Last Admin Trade Name Freq PRN Reason Stop Dose Admin Hydrocodone Bitart/Acetaminophen 1 each 09/20/21 18:00 09/20/21 22:44 Hydrocodone/Apap 5-325mg 1 Each Tab PO 1 each QID CARSON Administration Albuterol/Ipratropium 3 ml 09/20/21 16:26 09/21/21 04:13 Ipratropium-Albuterol 3 Ml Neb INHALATION 3 ml RT-Q4H PRN Administration Shortness Of Breath Or Wheezing Albuterol/Ipratropium 3 ml 09/20/21 20:00 09/20/21 19:14 Ipratropium-Albuterol 3 Ml Neb INHALATION 3 ml RT-QID CARSON Administration Budesonide 1 mg 09/20/21 20:00 09/20/21 19:14 Budesonide 1 Mg/2 Ml Nebu INHALATION 1 mg RT-BID CARSON Administration Cyclobenzaprine HCl 5 mg 09/20/21 22:00 09/20/21 22:45 Cyclobenzaprine 5 Mg Tab PO 5 mg TID CARSON Administration Formoterol Fumarate 20 mcg 09/20/21 20:00 09/20/21 19:13 Formoterol Fumarate 20 Mcg/2 Ml Nebu INHALATION 20 mcg RT-BID CARSON Administration Heparin Sodium (Porcine) 0 unit 09/20/21 15:09 09/20/21 21:20 Heparin Sodium 1,000 Un/Ml (10ml Vl) IV 2,350 unit PER PROTOCOL PRN Administration Low PTT Protocol Heparin Sodium/Sodium Chloride 250 mls @ 5.661 mls/hr 09/20/21 15:15 09/20/21 21:17 25,000 unit/ Sodium Chloride IV 15 units/kg/hr .Q24H CARSON 7.076 mls/hr Titration Protocol 12 UNITS/KG/HR Ceftriaxone Sodium 1 gm/ 50 mls @ 100 mls/hr 09/20/21 18:00 09/20/21 17:41 Sodium Chloride IVPB 100 mls/hr Q24H CARSON Administration Protocol Insulin Aspart 0 unit 09/21/21 07:30 09/21/21 06:33 Insulin Aspart (Novolog) 100 Unit/Ml Vial SQ 4 unit ACHS CARSON Administration Protocol Levothyroxine Sodium 100 mcg 09/21/21 09:00 Levothyroxine 100 Mcg Tab PO DAILY [facility] Methylprednisolone Sodium Succinate 60 mg 09/20/21 18:00 09/21/21 06:33 Methylprednisolone Sod Succi 125 Mg/2 Ml Vial IV 60 mg Q6HR CARSON Administration Pantoprazole Sodium 40 mg 09/21/21 07:30 09/21/21 06:33 Pantoprazole 40 Mg Tablet PO 40 mg [id number] CARSON Administration Intake and Output 09/20/21 09/21/21 09/21/21 22:59 06:59 14:59 Intake Total 33.117 10 Output Total 250 Balance 33.117 -240 Intake: IV 10 0.9 10 Intake, IV Titration 33.117 Amount Heparin Sod,Pork in 0.45% 33.117 NaCl 25,000 unit In 0.45 % NaCl 1 250ml.bag @ 12 UNITS/KG/HR 5.661 mls/hr IV .Q24H [facility] Rx#: [id number] Output: Urine 250 Other: Voiding Method External Catheter External Catheter Weight 47.174 kg 52 kg 09/21/21 03:51 09/21/21 03:51
[2021-09-21] MEDS ORDERED: DILTIAZEM DRIP BOLUS FROM BAG 1 MG SOLN IV ONE (10:54)
[2021-09-21] MEDS ORDERED: DILTIAZEM 125 MG in SODIUM CHLORIDE 0.9% 100 ML IV SCH (11:00)
[2021-09-21] MEDS ORDERED: HYDROcodone/APAP 5-325MG 1 EACH TAB ONE (12:00)
[2021-09-21] MEDS ORDERED: IPRATROPIUM-ALBUTEROL 3 ML NEB ONE (12:00)
[2021-09-21] MEDS ORDERED: methylPREDNISolone SOD SUCCI 125 MG/2 ML VIAL ONE (12:00)
[2021-09-21] MEDS ORDERED: INSULIN ASPART (NovoLOG) 100 UNIT/ML VIAL SQ ONE (12:30)
[2021-09-21 14:44] VITALS: BMI 19.6
[2021-09-21 14:49] LABS: Glucose,Whole Blood 167 mg/dL (75-99)
--- NOTE | 2021-09-21 14:53 | P.CNPUL ---
History of Present Illness Consult date: 09/21/21 Reason for consult: COPD History of present illness: 85-year-old female patient with known history of COPD, oxygen dependent was coming into the hospital because of worsening shortness of breath. Denied having any chest pain. Some limited cough and congestion was present. She also had some increased lower extremity edema. No angina. No palpitations. No pleurisy. No hemoptysis. The patient was seen in the ED. The patient was afebrile. The patient was with an active stable. EKG showed a normal sinus rhythm, no acute ischemic changes. The patient had a white second of 11.2 with a hemoglobin 13.1 and a platelet count of 25. Her sodium was at 126, potassium level was at 5.2 with a BUN of 27 and a creatinine of 0.8. The patient had a bilirubin of 0.5, AST of 56, ALT of 40, alkaline phosphatase 127, the albumin was at 4.2, the proBNP level was 12,300 and a troponin was at 0.17. Lactic acid level was at 2.5. Chest x-ray was consistent with COPD. The patient was started on bronchodilators. The patient was started on empiric antibiotic coverage with IV Rocephin. The patient was also started on IV Solu-Medrol. This morning, the patient was seen on the medical floor and the patient was found to be in atrial fibrillation with rapid ventricular response. The patient was ready on IV heparin. I added Cardizem drip for rate control. Cardiac exam is in progress. She is not known to have any form of chronic cardiac disease or cardiac arrhythmias. She is oxygen dependent and she has been maintained on Trelegy Ellipta on outpatient basis regarding her COPD and she is an ex-smoker. The patient has been vaccinated for COVID 192. Review of Systems Constitutional: Reports fatigue, Reports weakness Eyes: denies as per HPI, denies blurred vision, denies bulging eye, denies decreased vision, denies diplopia, denies discharge, denies dry eye, denies irritation, denies itching, denies pain, denies photophobia, denies loss of peripheral vision, denies loss of vision, denies tunnel vision/blind spots Ears: deny: decreased hearing, ear discharge, earache, tinnitus Ears, nose, mouth and throat: Reports as per HPI Breasts: absent: as per HPI, change in shape, gynecomastia, masses, nipple discharge, pain, skin changes, swelling Cardiovascular: Reports decreased exercise tolerance, Reports dyspnea on exertion, Reports irregular heart beat, Reports shortness of breath Respiratory: Reports dyspnea, Reports home oxygen Gastrointestinal: Reports as per HPI Genitourinary: Reports as per HPI Menstruation: Reports as per HPI Musculoskeletal: Reports as per HPI Musculoskeletal: absent: ankle pain, ankle stiffness, ankle swelling Neurological: Reports as per HPI Psychiatric: Reports as per HPI Endocrine: Reports as per HPI Hematologic/Lymphatic: Reports as per HPI Allergic/Immunologic: Reports as per HPI Past Medical History Past Medical History: COPD, Thyroid Disorder Additional Past Medical History / Comment(s): irregular heart beat History of Any Multi-Drug Resistant Organisms: None Reported Past Surgical History: Back Surgery, Cholecystectomy, Hysterectomy, No Surgical Hx Reported Additional Past Surgical History / Comment(s): thyroid partial removal Past Anesthesia/Blood Transfusion Reactions: No Reported Reaction Past Psychological History: No Psychological Hx Reported Smoking Status: Former smoker Past Alcohol Use History: None Reported, Occasional Past Drug Use History: None Reported - Past Family History Mother Family Medical History: Cancer Additional Family Medical History / Comment(s): Breast cancer, stomach cancer Father Family Medical History: Diabetes Mellitus, Myocardial Infarction ([place]) Medications and Allergies Home Medications Medication Instructions Recorded Confirmed Type Fluticasone/Umeclidin/Vilanter 1 puff INHALATION RT-DAILY 09/17/21 09/20/21 History [Trelegy Ellipta 100-62.5-25] Levothyroxine Sodium [Synthroid] 100 mcg PO DAILY 09/17/21 09/20/21 History Cyclobenzaprine [Flexeril] 5 mg PO TID 09/20/21 09/20/21 History HYDROcodone/APAP 5-325MG [[place] 1 tab PO QID 09/20/21 09/20/21 History 5-325] Allergies Allergy/AdvReac Type Severity Reaction Status Date / Time No Known Allergies Allergy Verified 09/20/21 15:41 Physical Exam Vitals: Vital Signs Temp Pulse Pulse Resp BP BP Pulse Ox 09/21/21 08:22 100 09/21/21 08:14 100 09/21/21 08:13 100 09/21/21 08:00 131 H 18 133/75 92 L 09/21/21 07:55 105 H 94 L 09/21/21 04:26 98 09/21/21 04:14 96 09/21/21 03:51 97.0 F L 108 H 18 128/70 95 09/21/21 00:05 09/21/21 00:00 97.4 F L 116 H 117 H 22 123/77 95 09/20/21 23:48 112 H 09/20/21 22:06 97.6 F 117 H 20 126/70 95 09/20/21 21:45 117 H 22 09/20/21 21:10 115 H 16 124/77 95 09/20/21 20:00 116 H 09/20/21 19:28 116 H 09/20/21 19:21 122 H 09/20/21 19:20 124 H 09/20/21 19:15 112 H 94 L 09/20/21 18:45 110 H 18 117/87 95 09/20/21 17:40 88 18 123/77 96 09/20/21 16:42 98 24 118/88 94 L 09/20/21 15:27 115 H 24 136/81 97 09/20/21 15:18 09/20/21 15:08 28 H 09/20/21 15:06 114 H 26 H 92 L 09/20/21 15:00 106 H 09/20/21 14:42 92 09/20/21 14:01 98.1 F 91 18 92 L FiO2 09/21/21 08:22 09/21/21 08:14 09/21/21 08:13 09/21/21 08:00 09/21/21 07:55 09/21/21 04:26 09/21/21 04:14 09/21/21 03:51 09/21/21 00:05 30 09/21/21 00:00 09/20/21 23:48 09/20/21 22:06 09/20/21 21:45 09/20/21 21:10 09/20/21 20:00 09/20/21 19:28 09/20/21 19:21 09/20/21 19:20 09/20/21 19:15 09/20/21 18:45 09/20/21 17:40 09/20/21 16:42 09/20/21 15:27 09/20/21 15:18 30 09/20/21 15:08 09/20/21 15:06 09/20/21 15:00 09/20/21 14:42 09/20/21 14:01 Intake and Output 09/20/21 09/21/21 09/21/21 22:59 06:59 14:59 Intake Total 33.117 10 Output Total 250 350 Balance 33.117 -240 -350 Intake: IV 10 0.9 10 Intake, IV Titration 33.117 Amount Heparin Sod,Pork in 0.45% 33.117 NaCl 25,000 unit In 0.45 % NaCl 1 250ml.bag @ 12 UNITS/KG/HR 5.661 mls/hr IV .Q24H [facility] Rx#: [id number] Output: Urine 250 350 Uretheral ([place]) 350 Other: Voiding Method External Catheter External Catheter External Catheter Weight 47.174 kg 52 kg 52 kg General appearance: alert, the patient is not having any respiratory distress, currently on 2 L of O2 nasal cannula with a pulse of 92% Head exam: Present: atraumatic, normocephalic Eye exam: Present: normal appearance, PERRL ENT exam: Present: normal exam Neck exam: Present: normal inspection. Absent: tenderness, meningismus Respiratory exam: Present: respiratory distress, accessory muscle use, decreased breath sounds and the patient scattered expiratory wheezes throughout the lung [place] Cardiovascular Exam: Present: Tachycardic and irregular consistent with atrial fibrillation with rapid ventricular response GI/Abdominal exam: Present: soft. Absent: distended, tenderness, guarding Extremities exam: Present: normal inspection, normal capillary refill. Absent: pedal edema, calf tenderness Neurological exam: Present: alert, oriented X3, CN II-XII intact. Absent: motor sensory deficit Psychiatric exam: Present: normal affect, normal mood Skin exam: Present: warm, dry, intact. Absent: cyanosis, diaphoretic Results - Laboratory Findings CBC and BMP: 09/21/21 03:51 09/21/21 03:51 PT/INR, D-dimer PT 10.5 sec (9.0-12.0) 09/21/21 03:51 INR 1.0 (<1.2) 09/21/21 03:51 Abnormal lab findings: Abnormal Labs 09/20/21 09/20/21 09/20/21 14:14 14:14 14:14 WBC 11.2 H MCHC Neutrophils # 10.1 H Lymphocytes # 0.5 L APTT 21.3 L Sodium 126 L Potassium 5.2 H Chloride 87 L Carbon Dioxide 32 H BUN 27 H Glucose 200 H POC Glucose (mg/dL) Plasma Lactic Acid Roland AST 56 H ALT 40 H Alkaline Phosphatase 127 H Troponin I 09/20/21 09/20/21 09/20/21 14:14 14:14 16:50 WBC MCHC Neutrophils # Lymphocytes # APTT Sodium Potassium Chloride Carbon Dioxide BUN Glucose POC Glucose (mg/dL) Plasma Lactic Acid Roland 2.5 H* 3.7 H* AST ALT Alkaline Phosphatase Troponin I 0.172 H* 09/20/21 09/20/21 09/20/21 16:58 20:23 20:23 WBC MCHC Neutrophils # Lymphocytes # APTT 33.0 H Sodium Potassium Chloride Carbon Dioxide BUN Glucose POC Glucose (mg/dL) Plasma Lactic Acid Roland AST ALT Alkaline Phosphatase Troponin I 0.143 H* 0.130 H* 09/20/21 09/21/21 09/21/21 20:23 03:51 03:51 WBC MCHC 30.7 L Neutrophils # Lymphocytes # 0.3 L APTT Sodium 126 L Potassium Chloride 91 L Carbon Dioxide 31 H BUN 24 H Glucose 188 H POC Glucose (mg/dL) Plasma Lactic Acid Roland 2.2 H* AST ALT Alkaline Phosphatase Troponin I 09/21/21 09/21/21 03:51 06:14 WBC MCHC Neutrophils # Lymphocytes # APTT 51.9 H Sodium Potassium Chloride Carbon Dioxide BUN Glucose POC Glucose (mg/dL) 176 H Plasma Lactic Acid Roland AST ALT Alkaline Phosphatase Troponin I - Diagnostic Findings Chest x-ray: image reviewed Assessment and Plan Plan: Acute COPD exacerbation with secondary shortness of breath, rule out underlying congestion heart failure. This morning, the patient was also found to be in atrial fibrillation with rapid ventricular response. ProBNP level is elevated Chronic hypoxic respiratory failure maintained on O2 at 2 L per minute nasal cannula rates to COPD New-onset atrial fibrillation with rapid ventricular response, currently on a Cardizem drip and IV heparin Hypothyroidism Mild lactic acidosis Hyponatremia Abnormal troponin, rule out underlying non-STEMI Plan Continue DuoNeb interventions [id number] IV Solu Medrol 60 mg every 6 hours Empiric antibiotic coverage with IV Rocephin Fluid restriction Cardizem drip for rate control and incentive and start the patient metoprolol 25 mg by mouth twice a day IV heparin 2-D echocardiogram to evaluate LV function Resum Jimy Reaves from home and uses albuterol and Atrovent nebulized him is [id number] 4 times a day Monitor sodium level Check thyroid function tests Cardiology consultation We'll continue to follow
[2021-09-21 16:33] LABS: Glucose,Whole Blood 194 mg/dL (75-99)
[2021-09-21] MEDS: ASPIRIN 81 MG PO SCH (17:22)
[2021-09-21] MEDS: METOPROLOL TARTRATE 25 MG TAB PO SCH ×2 (17:22→21:25)
[2021-09-21 19:30] LABS: Glucose,Whole Blood 200 mg/dL (75-99)
--- NOTE | 2021-09-21 19:41 | PN ---
PROGRESS NOTE DATE OF SERVICE: 09/21/2021 This 85-year-old woman who was admitted with COPD, acute exacerbation, was on BiPAP yesterday. No chest pain. No palpitations. No fever. PHYSICAL EXAMINATION: Pulse is 131, blood pressure 130/70, respiration 18. CHEST: Clear to auscultation. CARDIOVASCULAR: S1, S2 irregular. RESPIRATION: Breath sounds diminished at the bases. ABDOMEN: Soft. NERVOUS SYSTEM: No focal deficit. LABS: Reviewed. Sodium ntd Rest of the labs are reviewed. ASSESSMENT: 1. Chronic obstructive pulmonary disease, acute exacerbation, with acute hypoxic respiratory failure. 2. Elevated troponin, 0.172. 3. Atrial fibrillation with fast ventricular rate, new onset. 4. Hyponatremia. 5. Hypothyroidism. 6. History of cholecystectomy. RECOMMENDATIONS AND DISCUSSION: I recommend to continue current medications, continue with the monitoring, symptomatic treatment. Otherwise, continue with the Cardizem, bronchodilators, rest of the medications. Closely follow with Pulmonary. Guarded prognosis. Further recommendations to follow. MMODL / IJN: [id number] / [email or web address]
[2021-09-21] MEDS: ATORVASTATIN 80 MG TAB PO SCH (21:23)
[2021-09-21] MEDS: HEPARIN SOD,PORK IN 0.45% NACL 25,000 UNIT in 0.45% NACL 1 250ML.BAG IV SCH (22:11)
[2021-09-22] MEDS: HEPARIN SOD,PORK IN 0.45% NACL 25,000 UNIT in 0.45% NACL 1 250ML.BAG IV SCH (03:49)
[2021-09-22 05:22] LABS: Glucose,Whole Blood 226 mg/dL (75-99)
[2021-09-22] MEDS: INSULIN ASPART (NovoLOG) 100 UNIT/ML VIAL SQ SCH ×4 (06:32→22:52)
[2021-09-22] MEDS: methylPREDNISolone SOD SUCCI 125 MG/2 ML VIAL IV SCH ×3 (06:32→18:08)
[2021-09-22] MEDS: PANTOPRAZOLE 40 MG TABLET PO SCH (06:33)
[2021-09-22] MEDS: IPRATROPIUM-ALBUTEROL 3 ML NEB INHALATION SCH ×4 (07:27→20:19)
[2021-09-22] MEDS: FORMOTEROL FUMARATE 20 MCG/2 ML NEBU INHALATION SCH ×2 (07:27→20:19)
[2021-09-22] MEDS: BUDESONIDE 1 MG/2 ML NEBU INHALATION SCH ×2 (07:27→20:19)
--- NOTE | 2021-09-22 07:53 | CA ---
Transthoracic Echo Report Name: Shante Kaur Age: 85 Gender: F : 1935 Exam Date: 09/21/2021 08:53 Exam Location: [facility] Ht (in): 64 Wt (lb): 114 Ordering Physician: Ambrosio Oilva MD Attending/Referring Phys: [id number], Pj [employer] Officer Lainey Melchor, TOVA Procedure CPT: Indications: PASQUALE Cardiac Hx: Technical Quality: Poor Contrast 1: Total Dose (mL): Contrast 2: Total Dose (mL): MEASUREMENTS (Male / Female) Normal Values 2D ECHO LV Diastolic Diameter PLAX 2.7 cm 4.2 - 5.9 / 3.9 - 5.3 cm LV Systolic Diameter PLAX 1.8 cm IVS Diastolic Thickness 0.9 cm 0.6 - 1.0 / 0.6 - 0.9 cm LVPW Diastolic Thickness 0.9 cm 0.6 - 1.0 / 0.6 - 0.9 cm LV Relative Wall Thickness 0.7 RV Internal Dim ED PLAX 3.6 cm LA Systolic Diameter LX 2.1 cm 3.0 - 4.0 / 2.7 - 3.8 cm M-MODE Aortic Root Diameter MM 2.3 cm MV E Point Septal Separation 0.4 cm AV Cusp Separation MM 1.4 cm DOPPLER AV Peak Velocity 147.9 cm/s AV Peak Gradient 8.8 mmHg MV Area PHT 9.6 cm??? MV Deceleration Time 97.4 ms MV E' Velocity 7.6 cm/s TR Peak Velocity 295.9 cm/s TR Peak Gradient 35.0 mmHg Right Ventricular Systolic Press 48.9 mmHg FINDINGS Left Ventricle Normal left ventricular size, wall thickness, systolic function with no obvious regional wall motion abnormalities. The ejection fraction is visually estimated at 65-70 %. Right Ventricle Mild right ventricular dilatation. Moderate pulmonary hypertension. Right Atrium The right atrium is normal in size. Left Atrium The left atrium is normal in size. Mitral Valve Structurally normal mitral valve without significant stenosis or prolapse. There is no mitral regurgitation. Aortic Valve Structurally normal aortic valve without significant sclerosis or stenosis. There is no aortic regurgitation. Tricuspid Valve Moderate tricuspid regurgitation. Pulmonic Valve Structurally normal pulmonic valve without significant stenosis. There is mild pulmonic regurgitation. Pericardium Normal pericardium without effusion. Aorta Normal aortic root dimension. CONCLUSIONS Technically difficult study for interpretation Normal left ventricular dimension and systolic function Dilated right ventricle Previewed by: Dr. Sunil Mcneill MD (Electronically Signed) Final Date: 22 Sep 2021 07:52
[2021-09-22] MEDS: CYCLOBENZAPRINE 5 MG TAB PO SCH ×3 (08:50→22:51)
[2021-09-22] MEDS: ASPIRIN 81 MG PO SCH (08:50)
[2021-09-22] MEDS: APIXABAN 2.5 MG TABLET PO SCH ×2 (08:50→22:39)
[2021-09-22] MEDS: DILTIAZEM ORAL 60 MG TAB PO SCH ×3 (08:50→22:38)
[2021-09-22] MEDS: METOPROLOL TARTRATE 25 MG TAB PO SCH ×2 (08:51→22:38)
[2021-09-22] MEDS: LEVOTHYROXINE 100 MCG TAB PO SCH (08:51)
[2021-09-22] MEDS: HYDROcodone/APAP 5-325MG 1 EACH TAB PO SCH ×4 (08:51→22:51)
--- NOTE | 2021-09-22 10:37 | P.PN ---
Subjective Progress Note Date: 09/22/21 HISTORY OF PRESENT ILLNESS: This is a 85-year-old female with a past medical history significant for COPD with home oxygen use and hypothyroidism. Patient does not follow with a card iologist. We have been asked to see the patient in consultation for elevated troponins. Patient examined at the bedside. patient presented to the hospital with a chief shortness breath. She denies chest pain or pressure. She denies dizziness or lightheadedness. The patient was found to have abnormal troponins and was started on IV heparin. This morning she is tachycardic. * EKG reveals sinus mechanism with no signs of acute ischemia * Chest xray negative for acute process * Laboratory data: WBC 7.7. Hemoglobin 12.3. Platelet count 280. Sodium 126. Potassium 5.1. BUN 24. Creatinine 0.69. Lactic acid 2.2. Troponin 0.172. 0.143. 0.130. * Current home cardiac medications include none 09/22/2021 Patients repeat EKG yesterday revealed afib with RVR. No history of afib previously. Patient was started on IV Cardizem. She remains in atrial fibrillation this morning with controlled when she tolerates. She remains on IV heparin. She denies any chest pain or pressure. She denies shortness of breath. Echocardiogram completed revealing ejection fraction 65-70% with mild tricuspid regurgitation and moderate pulmonary hypertension. PHYSICAL EXAM: VITAL SIGNS: Reviewed. GENERAL: Well-developed in no acute distress. HEENT: Head is normocephalic. Pupils are equal, round. Sclerae anicteric. Mucous membranes of the mouth are moist. Neck supple. No JVD or thyromegaly LUNGS: Respirations even and unlabored. Lungs essentially clear to auscultation bilaterally. HEART: Regular rate and rhythm. S1 and S2 heard. ABDOMEN: Soft. Nondistended. Nontender. EXTREMITIES: Normal range of motion. No clubbing or cyanosis. Peripheral pulses intact. No lower extremity edema NEUROLOGIC: Awake and alert. Oriented x 3. ASSESSMENT: Shortness of breath Acute on chronic hypoxic respiratory failure New onset A. fib with RVR History of COPD with home oxygen use Abnormal troponins, may be type II DE, ACS ruled out PLAN: Discontinue IV Cardizem Discontinue IV heparin Begin Eliquis 2.5 mg twice a day. Discontinue aspirin Begin oral cardizem 60mg TID Continue telemetry monitoring Further recommendations pending patient course Nurse practitioner note has been reviewed by physician. Signing provider agrees with the documented findings, assessment, and plan of care. Objective - Vital Signs Vital signs: Vital Signs Temp 97.5 F L 09/22/21 08:00 Pulse 70 09/22/21 08:00 Resp 20 09/22/21 08:00 BP 126/70 09/22/21 08:00 Pulse Ox 95 09/22/21 08:00 FiO2 30 09/21/21 00:05 Intake & Output 09/21/21 09/22/21 09/22/21 18:59 06:59 18:59 Intake Total 480 636.054 120 Output Total 350 450 Balance 130 186.054 120 Weight 52 kg Intake: Intake, IV Titration 276.054 Amount Diltiazem 125 mg In 60 Sodium Chloride 0.9% 100 ml @ 5 MG/HR 5 mls/hr IV .Q24H [facility] Rx#:[id number] Heparin Sod,Pork in 0.45% 216.054 NaCl 25,000 unit In 0.45 % NaCl 1 250ml.bag @ 12 UNITS/KG/HR 5.661 mls/hr IV .Q24H [facility] Rx#: [id number] Oral 480 360 120 Output: Urine 350 450 Uretheral (Mays) 350 Other: Voiding Method External Catheter Indwelling Catheter Indwelling Catheter # Voids 0 - Labs CBC & Chem 7: 09/21/21 03:51 09/21/21 03:51 Labs: Abnormal Lab Results - Last 24 Hours (Table) 09/21/21 09/21/21 09/21/21 Range/Units 11:39 16:31 19:28 APTT (22.0-30.0) sec POC Glucose (mg/dL) 167 H 194 H 200 H (75-99) mg/dL 09/22/21 09/22/21 Range/Units 05:21 08:42 APTT 42.9 H (22.0-30.0) sec POC Glucose (mg/dL) 226 H (75-99) mg/dL
[2021-09-22 12:07] LABS: Glucose,Whole Blood 121 mg/dL (75-99)
[2021-09-22] MEDS: bisacodyL 5 MG TABLET.DR PO PRN (12:23)
--- NOTE | 2021-09-22 12:40 | P.PN ---
Subjective Progress Note Date: 09/22/21 85-year-old female patient with known history of COPD, oxygen dependent was coming into the hospital because of worsening shortness of breath. Denied having any chest pain. Some limited cough and congestion was present. She also had some increased lower extremity edema. No angina. No palpitations. No pleurisy. No hemoptysis. The patient was seen in the ED. The patient was afebrile. The patient was with an active stable. EKG showed a normal sinus rhythm, no acute ischemic changes. The patient had a white second of 11.2 with a hemoglobin 13.1 and a platelet count of 25. Her sodium was at 126, potassium level was at 5.2 with a BUN of 27 and a creatinine of 0.8. The patient had a bilirubin of 0.5, AST of 56, ALT of 40, alkaline phosphatase 127, the albumin was at 4.2, the proBNP level was 12,300 and a troponin was at 0.17. Lactic acid level was at 2.5. Chest x-ray was consistent with COPD. The patient was started on bronchodilators. The patient was started on empiric antibiotic coverage with IV Rocephin. The patient was also started on IV Solu-Medrol. This morning, the patient was seen on the medical floor and the patient was found to be in atrial fibrillation with rapid ventricular response. The patient was ready on IV heparin. I added Cardizem drip for rate control. Cardiac exam is in progress. She is not known to have any form of chronic cardiac disease or cardiac arrhythmias. She is oxygen dependent and she has been maintained on Trelegy Ellipta on outpatient basis regarding her COPD and she is an ex-smoker. The patient has been vaccinated for COVID 192. 09/22/2021, the patient is feeling slightly better compared to yesterday. She still short of breath with talking and having food and this is related to her advanced COPD. In terms of her COPD, she is on a combination of bronchodilators steroids. In terms of her cardiac status, the patient converted to normal sinus rhythm. She was taken off the amiodarone. The echocardiogram was completed yesterday and the patient was found to have a preserved LV function with an ejection fraction being hyperdynamic at 65-70%. The patient has no significant valvular abnormalities. There was some dilated patient of the RV related to chronic lung disease. No angina. No palpitations. She was unable to tolerate the BiPAP yesterday and based on that, the BiPAP was discontinued. Her condition is stable. She is along for medical evaluation with Eliquis 2.5 mg twice a day and this was started today. IV heparin was discontinued. She remains on IV Solu-Medrol. Objective - Vital Signs Vital signs: Vital Signs Temp 97.5 F L 09/22/21 08:00 Pulse 70 09/22/21 08:00 Resp 20 09/22/21 08:00 BP 126/70 09/22/21 08:00 Pulse Ox 95 09/22/21 08:00 FiO2 30 09/21/21 00:05 Intake & Output 09/21/21 09/22/21 09/22/21 18:59 06:59 18:59 Intake Total 480 636.054 120 Output Total 350 450 Balance 130 186.054 120 Weight 52 kg Intake: Intake, IV Titration 276.054 Amount Diltiazem 125 mg In 60 Sodium Chloride 0.9% 100 ml @ 5 MG/HR 5 mls/hr IV .Q24H [facility] Rx#:[id number] Heparin Sod,Pork in 0.45% 216.054 NaCl 25,000 unit In 0.45 % NaCl 1 250ml.bag @ 12 UNITS/KG/HR 5.661 mls/hr IV .Q24H [facility] Rx#: [id number] Oral 480 360 120 Output: Urine 350 450 Uretheral (Mays) 350 Other: Voiding Method External Catheter Indwelling Catheter Indwelling Catheter # Voids 0 - Exam General appearance: alert, the patient is not having any respiratory distress, currently on 2 L of O2 nasal cannula with a pulse of 92% Head exam: Present: atraumatic, normocephalic Eye exam: Present: normal appearance, PERRL ENT exam: Present: normal exam Neck exam: Present: normal inspection. Absent: tenderness, meningismus Respiratory exam: Present: respiratory distress, accessory muscle use, decreased breath sounds and the patient scattered expiratory wheezes throughout the lung trujillo Cardiovascular Exam: Cardiac exam revealed the PMI to be normally situated and sized. The rhythm was regular and no extrasystoles were noted during several minutes of auscultation. The first and second heart sounds were normal and physiologic splitting of the second heart sound was noted. There were no murmurs, rubs, clicks, or gallops. GI/Abdominal exam: Present: soft. Absent: distended, tenderness, guarding Extremities exam: Present: normal inspection, normal capillary refill. Absent: pedal edema, calf tenderness Neurological exam: Present: alert, oriented X3, CN II-XII intact. Absent: motor sensory deficit Psychiatric exam: Present: normal affect, normal mood Skin exam: Present: warm, dry, intact. Absent: cyanosis, diaphoretic - Labs CBC & Chem 7: 09/21/21 03:51 09/21/21 03:51 Labs: Abnormal Lab Results - Last 24 Hours (Table) 09/21/21 09/21/21 09/21/21 Range/Units 11:39 16:31 19:28 APTT (22.0-30.0) sec POC Glucose (mg/dL) 167 H 194 H 200 H (75-99) mg/dL 09/22/21 09/22/21 09/22/21 Range/Units 05:21 08:42 12:05 APTT 42.9 H (22.0-30.0) sec POC Glucose (mg/dL) 226 H 121 H (75-99) mg/dL Assessment and Plan Plan: Acute COPD exacerbation with secondary shortness of breath, rule out underlying congestion heart failure. This morning, the patient was also found to be in at rial fibrillation with rapid ventricular response. ProBNP level is elevated, clinically the patient is improved and the patient is currently in a normal sinus rhythm. The patient is off IV heparin off amiodarone. The patient is also off the BiPAP and the patient is tolerating well on 2 L of oxygen by nasal cannula. She is a DNR/DNI CODE STATUS. Chronic hypoxic respiratory failure maintained on O2 at 2 L per minute nasal cannula rates to COPD New-onset atrial fibrillation with rapid ventricular response, currently off Cardizem drip and IV heparin, rate is controlled and the patient is currently on oral Eliquis. Hypothyroidism Mild lactic acidosis Hyponatremia Abnormal troponin, rule out underlying non-STEMI Plan Poor prognosis with a DO NOT INTUBATE CODE STATUS clinically improved compared to yesterday Continue DuoNeb interventions [id number] IV Solu Medrol 60 mg every 6 hours Empiric antibiotic coverage with IV Rocephin Fluid restriction Start the patient on Eliquis and stopped IV heparin 2-D echocardiogram to evaluate LV functionWas noted Resume Trekay Reaves from home and uses albuterol and Atrovent nebulized him is [id number] 4 times a day We'll continue to follow.
[2021-09-22 12:49] LABS: Basophils # (A) 0.1 k/uL (0-0.2); Basophils % (A) 0 %; Eosinophils % (A) 0 %; HCT 41.9 % (34.0-46.0); HGB 12.6 gm/dL (11.4-16.0); Hypochromasia Slight; Lymphocytes # (A) 0.5 k/uL (1.0-4.8); Lymphocytes % (A) 3 %; MCHC 30.2 g/dL (31.0-37.0); MCV 99.4 fL (80.0-100.0); Mean Platelet Volume 8.4; Monocytes # (A) 0.6 k/uL (0-1.0); Monocytes % (A) 4 %; Neutrophils % (A) 92 %; Platelet Count 346 k/uL (150-450); RBC 4.21 m/uL (3.80-5.40); RDW 13.9 % (11.5-15.5); WBC 15.2 k/uL (3.8-10.6)
[2021-09-22 12:56] LABS: Calcium 9.9 mg/dL (8.4-10.2); Magnesium 2.2 mg/dL (1.6-2.3); Potassium 5.9 mmol/L (3.5-5.1)
[2021-09-22] MEDS ORDERED: DEXTROSE 50% SYRINGE 50 ML IVP STA (15:52)
[2021-09-22] MEDS ORDERED: INSULIN REGULAR 100 UNIT/ML VIAL (IV) IV ONE (16:00)
[2021-09-22] MEDS: SODIUM CHLORIDE 0.9% 1,000 ML IV SCH (16:43)
[2021-09-22 17:15] LABS: Glucose,Whole Blood 318 mg/dL (75-99)
[2021-09-22 21:08] LABS: Glucose,Whole Blood 180 mg/dL (75-99)
[2021-09-22] MEDS: ATORVASTATIN 80 MG TAB PO SCH (22:51)
[2021-09-23] MEDS: methylPREDNISolone SOD SUCCI 125 MG/2 ML VIAL IV SCH ×4 (00:56→18:22)
[2021-09-23 06:05] LABS: Glucose,Whole Blood 231 mg/dL (75-99)
[2021-09-23] MEDS: INSULIN ASPART (NovoLOG) 100 UNIT/ML VIAL SQ SCH ×4 (06:18→22:08)
[2021-09-23] MEDS: PANTOPRAZOLE 40 MG TABLET PO SCH (06:18)
[2021-09-23] MEDS: SODIUM CHLORIDE 0.9% 1,000 ML IV SCH ×2 (06:20→13:37)
[2021-09-23] MEDS: BUDESONIDE 1 MG/2 ML NEBU INHALATION SCH ×2 (07:19→20:37)
[2021-09-23] MEDS: IPRATROPIUM-ALBUTEROL 3 ML NEB INHALATION SCH ×4 (07:19→20:37)
[2021-09-23] MEDS: FORMOTEROL FUMARATE 20 MCG/2 ML NEBU INHALATION SCH ×2 (07:19→20:37)
[2021-09-23] MEDS: TRELEGY INHALATION SCH (07:37)
[2021-09-23] MEDS: HYDROcodone/APAP 5-325MG 1 EACH TAB PO SCH ×4 (08:08→19:59)
[2021-09-23] MEDS: CYCLOBENZAPRINE 5 MG TAB PO SCH ×3 (08:08→21:05)
[2021-09-23] MEDS: METOPROLOL TARTRATE 25 MG TAB PO SCH ×2 (08:31→19:59)
[2021-09-23] MEDS: bisacodyL 5 MG TABLET.DR PO PRN (08:31)
[2021-09-23] MEDS: APIXABAN 2.5 MG TABLET PO SCH ×2 (08:31→19:59)
[2021-09-23] MEDS: LEVOTHYROXINE 100 MCG TAB PO SCH (08:31)
[2021-09-23] MEDS: DILTIAZEM ORAL 60 MG TAB PO SCH ×3 (08:31→19:59)
[2021-09-23 10:04] LABS: Calcium 10.1 mg/dL (8.4-10.2)
[2021-09-23 10:11] LABS: Potassium 7.1 mmol/L (3.5-5.1)
[2021-09-23 10:15] LABS: Basophils % (A) 0 %; Eosinophils % (A) 0 %; HCT 42.4 % (34.0-46.0); Hypochromasia Slight; Lymphocytes # (A) 0.2 k/uL (1.0-4.8); Lymphocytes % (A) 2 %; MCH 30.3 pg (25.0-35.0); MCHC 30.7 g/dL (31.0-37.0); MCV 98.5 fL (80.0-100.0); Mean Platelet Volume 7.2; Monocytes # (A) 0.6 k/uL (0-1.0); Monocytes % (A) 5 %; Neutrophils # (A) 11.4 k/uL (1.3-7.7); Neutrophils % (A) 92 %; Platelet Count 365 k/uL (150-450); RBC 4.31 m/uL (3.80-5.40); RDW 14.3 % (11.5-15.5); WBC 12.4 k/uL (3.8-10.6)
[2021-09-23] MEDS ORDERED: SODIUM POLYSTYRENE SULFONATE 15 GM/60 ML BOTTLE PO STA (10:33)
[2021-09-23] MEDS ORDERED: CALCIUM GLUCONATE IN NACL 1 GM in SALINE 1 100ML.BAG IVPB ONE (10:35)
[2021-09-23] MEDS ORDERED: INSULIN REGULAR 100 UNIT/ML VIAL (IV) IV ONE (10:38)
[2021-09-23] MEDS ORDERED: DEXTROSE 50% SYRINGE 50 ML IVP ONE (10:38)
[2021-09-23] MEDS ORDERED: ALBUTEROL NEB (CONC) 2.5 MG/0.5 ML INHALATION ONE (10:38)
[2021-09-23] MEDS ORDERED: SODIUM POLYSTYRENE SULFONATE 15 GM/60 ML BOTTLE PO ONE (10:38)
[2021-09-23] MEDS: FUROSEMIDE 10 MG/ML 4 ML VIAL IV SCH (11:01)
[2021-09-23 12:09] LABS: Glucose,Whole Blood 225 mg/dL (75-99)
--- NOTE | 2021-09-23 12:21 | P.PN ---
Subjective Progress Note Date: 09/23/21 85-year-old female patient with known history of COPD, oxygen dependent was coming into the hospital because of worsening shortness of breath. Denied having any chest pain. Some limited cough and congestion was present. She also had some increased lower extremity edema. No angina. No palpitations. No pleurisy. No hemoptysis. The patient was seen in the ED. The patient was afebrile. The patient was with an active stable. EKG showed a normal sinus rhythm, no acute ischemic changes. The patient had a white second of 11.2 with a hemoglobin 13.1 and a platelet count of 25. Her sodium was at 126, potassium level was at 5.2 with a BUN of 27 and a creatinine of 0.8. The patient had a bilirubin of 0.5, AST of 56, ALT of 40, alkaline phosphatase 127, the albumin was at 4.2, the proBNP level was 12,300 and a troponin was at 0.17. Lactic acid level was at 2.5. Chest x-ray was consistent with COPD. The patient was started on bronchodilators. The patient was started on empiric antibiotic coverage with IV Rocephin. The patient was also started on IV Solu-Medrol. This morning, the patient was seen on the medical floor and the patient was found to be in atrial fibrillation with rapid ventricular response. The patient was ready on IV heparin. I added Cardizem drip for rate control. Cardiac exam is in progress. She is not known to have any form of chronic cardiac disease or cardiac arrhythmias. She is oxygen dependent and she has been maintained on Trelegy Ellipta on outpatient basis regarding her COPD and she is an ex-smoker. The patient has been vaccinated for COVID 192. 09/22/2021, the patient is feeling slightly better compared to yesterday. She still short of breath with talking and having food and this is related to her advanced COPD. In terms of her COPD, she is on a combination of bronchodilators steroids. In terms of her cardiac status, the patient converted to normal sinus rhythm. She was taken off the amiodarone. The echocardiogram was completed yesterday and the patient was found to have a preserved LV function with an ejection fraction being hyperdynamic at 65-70%. The patient has no significant valvular abnormalities. There was some dilated patient of the RV related to chronic lung disease. No angina. No palpitations. She was unable to tolerate the BiPAP yesterday and based on that, the BiPAP was discontinued. Her condition is stable. She is along for medical evaluation with Eliquis 2.5 mg twice a day and this was started today. IV heparin was discontinued. She remains on IV Solu-Medrol. 09/23/2021, the patient is doing poor and her breathing is labored. The patient is unable to speak full sentences. Her speech is interrupted. At times she is confused. Oral intake is quite diminished and she is not meeting her caloric requirements. She is very weak and debilitated. She is cachectic. Her body mass index is 19.7. She has advanced COPD. Atrial fibrillation has converted is no sinus rhythm and the patient was started on anticoagulation with Eliquis. At the same time the patient is receiving DuoNeb nebulized treatments around the clock, IV Solu-Medrol to optimize her COPD. She is on IV Rocephin as an empiric antibiotic coverage. IV fluids are running at 130 mL an hour. Objective - Vital Signs Vital signs: Vital Signs Temp 97.2 F L 09/23/21 08:05 Pulse 58 L 09/23/21 08:05 Resp 20 09/23/21 08:05 BP 156/75 09/23/21 08:05 Pulse Ox 90 L 09/23/21 08:05 FiO2 30 09/21/21 00:05 Intake & Output 09/22/21 09/23/21 09/23/21 18:59 06:59 18:59 Intake Total 310 1080 Output Total 300 400 Balance 10 680 Intake: Intake, IV Titration 150 900 Amount Sodium Chloride 0.9% 1, 150 900 000 ml @ 75 mls/hr IV . [id number] [facility] Rx#:[id number] Oral 120 180 Lipid 40 0.9 40 Output: Urine 300 400 Uretheral (Mays) 300 400 Other: Voiding Method Indwelling Catheter Indwelling Catheter Indwelling Catheter # Bowel Movements 0 - Exam General appearance: alert, the patient is mild degree of respiratory respiratory distress, currently on 2 L of O2 nasal cannula with a pulse of 92%, body mass index is 19.7 and she is quite cachectic and emaciated. Head exam: Present: atraumatic, normocephalic Eye exam: Present: normal appearance, PERRL ENT exam: Present: normal exam Neck exam: Present: normal inspection. Absent: tenderness, meningismus Respiratory exam: Present: respiratory distress, accessory muscle use, decreased breath sounds and the patient scattered expiratory wheezes throughout the lung trujillo Cardiovascular Exam: Cardiac exam revealed the PMI to be normally situated and sized. The rhythm was regular and no extrasystoles were noted during several minutes of auscultation. The first and second heart sounds were normal and physiologic splitting of the second heart sound was noted. There were no murmurs, rubs, clicks, or gallops. GI/Abdominal exam: Present: soft. Absent: distended, tenderness, guarding Extremities exam: Present: normal inspection, normal capillary refill. Absent: pedal edema, calf tenderness Neurological exam: Present: alert, oriented X3, CN II-XII intact. Absent: motor sensory deficit Psychiatric exam: Present: normal affect, normal mood Skin exam: Present: warm, dry, intact. Absent: cyanosis, diaphoretic - Labs CBC & Chem 7: 09/23/21 09:06 09/23/21 09:06 Labs: Abnormal Lab Results - Last 24 Hours (Table) 09/22/21 09/22/21 09/22/21 Range/Units 08:42 08:42 12:05 WBC 15.2 H (3.8-10.6) k/uL MCHC 30.2 L (31.0-37.0) g/dL Neutrophils # 14.0 H (1.3-7.7) k/uL Lymphocytes # 0.5 L (1.0-4.8) k/uL Sodium 127 L (137-145) mmol/L Potassium 5.9 H (3.5-5.1) mmol/L Chloride 91 L (98-107) mmol/L Carbon Dioxide 31 H (22-30) mmol/L BUN 52 H (7-17) mg/dL Creatinine 1.29 H (0.52-1.04) mg/dL Glucose 130 H (74-99) mg/dL POC Glucose (mg/dL) 121 H (75-99) mg/dL 09/22/21 09/22/21 09/23/21 Range/Units 17:13 20:59 05:53 WBC (3.8-10.6) k/uL MCHC (31.0-37.0) g/dL Neutrophils # (1.3-7.7) k/uL Lymphocytes # (1.0-4.8) k/uL Sodium (137-145) mmol/L Potassium (3.5-5.1) mmol/L Chloride (98-107) mmol/L Carbon Dioxide (22-30) mmol/L BUN (7-17) mg/dL Creatinine (0.52-1.04) mg/dL Glucose (74-99) mg/dL POC Glucose (mg/dL) 318 H 180 H 231 H (75-99) mg/dL Assessment and Plan Plan: Acute COPD exacerbation with secondary shortness of breath, rule out underlying congestion heart failure. The patient has advanced COPD with chronic hypoxic respiratory failure. She is quite cachectic and on today's evaluation her breathing remains labored and on and off she is using his muscles of breathing. Family is at the bedside. Her performance and functional status is extremely poor and the patient is very weak and on and off confused and debilitated at this point in time. The family is considering hospice/comfort care measures. We will avoid his switched her CODE STATUS to DNR/DNI. Chronic hypoxic respiratory failure maintained on O2 at 2 L per minute nasal cannula rates to COPD New-onset atrial fibrillation with rapid ventricular response, currently off Cardizem drip and IV heparin, rate is controlled and the patient is currently on oral Eliquis. Hypothyroidism Mild lactic acidosis Hyponatremia Abnormal troponin, rule out underlying non-STEMI Plan Poor prognosis with a DO NOT INTUBATE CODE STATUS Despite some initial improvement yesterday, the patient's condition remains poor and long-term prognosis is going to stay for as the patient has advanced COPD along with severe debility and very weak based on performance and functional s tatus. Continue DuoNeb interventions [id number] IV Solu Medrol 60 mg every 6 hours Empiric antibiotic coverage with IV Rocephin Fluid restriction, cut down the IV fluids to KVO Review the patient does of Lasix Patient was started on Eliquis Echocardiogram was noted Possible hospice/comfort care measures within the next 2448 hrs. especially if there is no improvement. The patient is taking ensure patient is unable to meet her caloric requirements.
[2021-09-23] MEDS ORDERED: SODIUM BICARB 8.4% 50 ML SYR (1 MEQ/ML) IV STA (12:23)
--- NOTE | 2021-09-23 13:52 | P.PN ---
Subjective HISTORY OF PRESENT ILLNESS: This is a 85-year-old female with a past medical history significant for COPD with home oxygen use and hypothyroidism. 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 We have been asked to see the patient in consultation for elevated troponins. Patient examined at the bedside. patient presented to the hospital with a chief shortness breath. She denies chest pain or pressure. She denies dizziness or lightheadedness. The patient was found to have abnormal troponins and was started on IV heparin. This morning she is tachycardic. * EKG reveals sinus mechanism with no signs of acute ischemia * Chest xray negative for acute process * Laboratory data: WBC 7.7. Hemoglobin 12.3. Platelet count 280. Sodium 126. Potassium 5.1. BUN 24. Creatinine 0.69. Lactic acid 2.2. Troponin 0.172. 0.143. 0.130. * Current home cardiac medications include none 09/22/2021 Patients repeat EKG yesterday revealed afib with RVR. No history of afib previously. Patient was started on IV Cardizem. She remains in atrial fibrill ation this morning with controlled when she tolerates. She remains on IV heparin. She denies any chest pain or pressure. She denies shortness of breath. Echocardiogram completed revealing ejection fraction 65-70% with mild tricuspid regurgitation and moderate pulmonary hypertension. 09/23 Patient seen and examined. Patient more lethargic and only able to answer in 1- 2 word sentences. Family concerned that she has been somewhat slurring her words and more lethargic. She is not currently drinking much. She has had increase in creatinine up to 1.4 from baseline 0.7 with increase in potassium up to 7.1. This is been treated medically. Echo performed yesterday shows hyperdynamic 65%. There was mention of right ventricle being dilated as well as pulmonary hypertension with RVSP of 47. Has remained in sinus. PHYSICAL EXAM: VITAL SIGNS: Reviewed. GENERAL: Well-developed, ill appearing, frail HEENT: Head is normocephalic. Pupils are equal, round. Sclerae anicteric. Mucous membranes of the mouth are moist. Neck supple. No JVD or thyromegaly LUNGS: Respirations even and unlabored. Lungs essentially clear to auscultation bilaterally. HEART: Regular rate and rhythm. S1 and S2 heard. ABDOMEN: Soft. Nondistended. Nontender. EXTREMITIES: Normal range of motion. No clubbing or cyanosis. Peripheral pulses intact. No lower extremity edema NEUROLOGIC: Awake somnolent ASSESSMENT: Shortness of breath Acute on chronic hypoxic respiratory failure related to COPD New onset A. fib with RVR, currently sinus History of COPD with home oxygen use Abnormal troponins, type 2 mechanism related to hypoxia, SOFYA Pulmonary hypertension with concern of RV dilation SOFYA Hyperkalemia PLAN: Continue Eliquis 2.5 mg twice a day. Continue oral cardizem 60mg TID Patient with a TIA and worsened potassium up to 7.1. No significant arrhythmias noted on telemetry however monitor closely. Patient may need dialysis of potassium is not improved. Recommend nephrology consult for further potassium management. Patient appears to be declining and prognosis guarded. Echo shows preserved left ventricular function however right ventricle noted to be dilated with elevated RVSP. Does not appear volume overloaded on exam. Continue supportive care. Objective - Vital Signs Vital signs: Vital Signs Temp 97.2 F L 09/23/21 08:05 Pulse 72 09/23/21 11:15 Resp 20 09/23/21 08:05 BP 156/75 09/23/21 08:05 Pulse Ox 90 L 09/23/21 08:05 FiO2 30 09/21/21 00:05 Intake & Output 09/22/21 09/23/21 09/23/21 18:59 06:59 18:59 Intake Total 310 1080 Output Total 300 400 250 Balance 10 680 -250 Intake: Intake, IV Titration 150 900 Amount Sodium Chloride 0.9% 1, 150 900 000 ml @ 10 mls/hr IV . Q24H [facility] Rx#:[id number] Oral 120 180 Lipid 40 0.9 40 Output: Urine 300 400 250 Uretheral (Mays) 300 400 Other: Voiding Method Indwelling Catheter Indwelling Catheter Indwelling Catheter # Bowel Movements 0 - Labs CBC & Chem 7: 09/23/21 09:06 09/23/21 09:06 Labs: Abnormal Lab Results - Last 24 Hours (Table) 09/22/21 09/22/21 09/23/21 Range/Units 17:13 20:59 05:53 WBC (3.8-10.6) k/uL MCHC (31.0-37.0) g/dL Neutrophils # (1.3-7.7) k/uL Lymphocytes # (1.0-4.8) k/uL Sodium (137-145) mmol/L Potassium (3.5-5.1) mmol/L Chloride (98-107) mmol/L BUN (7-17) mg/dL Creatinine (0.52-1.04) mg/dL Glucose (74-99) mg/dL POC Glucose (mg/dL) 318 H 180 H 231 H (75-99) mg/dL 09/23/21 09/23/21 09/23/21 Range/Units 09:06 09:06 12:07 WBC 12.4 H (3.8-10.6) k/uL MCHC 30.7 L (31.0-37.0) g/dL Neutrophils # 11.4 H (1.3-7.7) k/uL Lymphocytes # 0.2 L (1.0-4.8) k/uL Sodium 127 L (137-145) mmol/L Potassium 7.1 H* (3.5-5.1) mmol/L Chloride 91 L (98-107) mmol/L BUN 68 H (7-17) mg/dL Creatinine 1.39 H (0.52-1.04) mg/dL Glucose 161 H (74-99) mg/dL POC Glucose (mg/dL) 225 H (75-99) mg/dL
[2021-09-23 16:50] LABS: Glucose,Whole Blood 134 mg/dL (75-99)
[2021-09-23] MEDS ORDERED: bisacodyL 10 MG SUPP RECTAL PRN (17:53)
[2021-09-23] MEDS: MORPHINE SULFATE 2 MG/ML SYRINGE IVP PRN (20:53)
[2021-09-23] MEDS: ATORVASTATIN 80 MG TAB PO SCH (21:05)
--- NOTE | 2021-09-24 00:09 | P.PN ---
Subjective Progress Note Date: 09/22/21 Patient is a 85-year-old female with known history of COPD on home oxygen presents to ER with complaints of worsening shortness of breath. Patient was also having leg swelling. No fever no chills. Chest x-ray consistent with COPD. Patient was found to have atrial fibrillation with rapid ventricular re sponse. Currently being continued on IV steroids and antibiotics in the form of ceftriaxone. 09/22/2021. Patient is currently lying in the bed. Awake alert but feels very weak. Still short of breath and is requiring high flow oxygen. Patient is becoming IV Solu-Medrol and duo nebs and antibiotics and follow-up ceftriaxone. Patient is in sinus rhythm and off amiodarone. 2D echocardiogram showed preserved LV function with ejection fraction 65 to 70% and no significant valvular abnormalities noted. Patient does have dilated right ventricle. Patient is on Eliquis 2.5 mg twice daily and IV heparin has been discontinued. Cardiology and pulmonary is on board. Laboratory data showed sodium 127 potassium 5.9 chloride 91 bicarb is 31 BUN 52 and creatinine 1.19 and blood sugar is 130 WBC 15.2 hemoglobin 12.6 and platelets 346. Current medications reviewed. Objective - Vital Signs Vital signs: Vital Signs Temp 97.7 F 09/22/21 16:00 Pulse 80 09/22/21 20:43 Resp 22 09/22/21 16:00 BP 103/77 09/22/21 16:00 Pulse Ox 97 09/22/21 20:19 FiO2 30 09/21/21 00:05 Intake & Output 09/22/21 09/22/21 09/23/21 06:59 18:59 06:59 Intake Total 636.054 310 Output Total 450 300 400 Balance 186.054 10 -400 Intake: Intake, IV Titration 276.054 150 Amount Diltiazem 125 mg In 60 Sodium Chloride 0.9% 100 ml @ 5 MG/HR 5 mls/hr IV .Q24H [facility] Rx#:[id number] Heparin Sod,Pork in 0.45% 216.054 NaCl 25,000 unit In 0.45 % NaCl 1 250ml.bag @ 12 UNITS/KG/HR 5.661 mls/hr IV .Q24H [facility] Rx#: [id number] Sodium Chloride 0.9% 1, 150 000 ml @ 75 mls/hr IV . [id number] [facility] Rx#:[id number] Oral 360 120 Lipid 40 0.9 40 Output: Urine 450 300 400 Uretheral (Mays) 300 400 Other: Voiding Method Indwelling Catheter Indwelling Catheter # Bowel Movements 0 - Exam PHYSICAL EXAMINATION: Patient is lying in the bed comfortably, no acute distress, awake alert and oriented.cachectic. HEENT: Normocephalic. Neck is supple. Pupils reactive. Nostrils clear. Oral cavity is moist. Neck reveals no JVD, carotid bruits, or thyromegaly. CHEST EXAMINATION: Trachea is central. Symmetrical expansion. Bilateral diminished sounds.. CARDIAC: Normal S1, S2 with no gallops. No murmurs ABDOMEN: Soft. Bowel sounds normal. No organomegaly. No abdominal bruits. Extremities: reveal no edema. No clubbing or cyanosis Neurologically awake, alert, oriented x3 with well-coordinated movements. No focal deficits noted Skin: No rash or skin lesions. Psychiatric: Cooperative. Nonsuicidal Musculoskeletal: No joint swelling or deformity. Normal range of motion. - Labs CBC & Chem 7: 09/23/21 09:06 09/23/21 14:23 Labs: Abnormal Lab Results - Last 24 Hours (Table) 09/22/21 09/22/21 09/22/21 Range/Units 05:21 08:42 08:42 WBC 15.2 H (3.8-10.6) k/uL MCHC 30.2 L (31.0-37.0) g/dL Neutrophils # 14.0 H (1.3-7.7) k/uL Lymphocytes # 0.5 L (1.0-4.8) k/uL APTT 42.9 H (22.0-30.0) sec Sodium (137-145) mmol/L Potassium (3.5-5.1) mmol/L Chloride (98-107) mmol/L Carbon Dioxide (22-30) mmol/L BUN (7-17) mg/dL Creatinine (0.52-1.04) mg/dL Glucose (74-99) mg/dL POC Glucose (mg/dL) 226 H (75-99) mg/dL 09/22/21 09/22/21 09/22/21 Range/Units 08:42 12:05 17:13 WBC (3.8-10.6) k/uL MCHC (31.0-37.0) g/dL Neutrophils # (1.3-7.7) k/uL Lymphocytes # (1.0-4.8) k/uL APTT (22.0-30.0) sec Sodium 127 L (137-145) mmol/L Potassium 5.9 H (3.5-5.1) mmol/L Chloride 91 L (98-107) mmol/L Carbon Dioxide 31 H (22-30) mmol/L BUN 52 H (7-17) mg/dL Creatinine 1.29 H (0.52-1.04) mg/dL Glucose 130 H (74-99) mg/dL POC Glucose (mg/dL) 121 H 318 H (75-99) mg/dL 09/22/21 Range/Units 20:59 WBC (3.8-10.6) k/uL MCHC (31.0-37.0) g/dL Neutrophils # (1.3-7.7) k/uL Lymphocytes # (1.0-4.8) k/uL APTT (22.0-30.0) sec Sodium (137-145) mmol/L Potassium (3.5-5.1) mmol/L Chloride (98-107) mmol/L Carbon Dioxide (22-30) mmol/L BUN (7-17) mg/dL Creatinine (0.52-1.04) mg/dL Glucose (74-99) mg/dL POC Glucose (mg/dL) 180 H (75-99) mg/dL Assessment and Plan Assessment: Shortness of breath secondary to acute COPD exacerbation and CHF Acute on chronic hypoxic respiratory failure was on BiPAP but discontinued as the patient did not tolerate well. New onset atrial fibrillation with rapid regular rate Elevated troponin level possible type II TN Hyperkalemia due to acute kidney injury Lactic acidosis hypobulimic hyponatremia Chronic hypoxic respiratory failure on 2 L oxygen via nasal cannula. Hypothyroidism Mild to moderate protein calorie malnutrition. DVT prophylaxis patient is already on anticoagulation. Plan: Patient will be continued on duo nebs and IV Solu-Medrol 60 mg every 6 hourly. On antibiotic in the form of Rocephin. Patient was started on oral Cardizem and anticoagulation with Eliquis. Patient is also on metoprolol 25 mg twice daily. Cardiology and pulmonary is on board. Prognosis guarded. CODE STATUS is DNR/DNI. Time with Patient: Greater than 30
--- NOTE | 2021-09-24 00:12 | P.PN ---
Subjective Progress Note Date: 09/23/21 Patient is a 85-year-old female with known history of COPD on home oxygen presents to ER with complaints of worsening shortness of breath. Patient was also having leg swelling. No fever no chills. Chest x-ray consistent with COPD. Patient was found to have atrial fibrillation with rapid ventricular re sponse. Currently being continued on IV steroids and antibiotics in the form of ceftriaxone. 09/22/2021. Patient is currently lying in the bed. Awake alert but feels very weak. Still short of breath and is requiring high flow oxygen. Patient is becoming IV Solu-Medrol and duo nebs and antibiotics and follow-up ceftriaxone. Patient is in sinus rhythm and off amiodarone. 2D echocardiogram showed preserved LV function with ejection fraction 65 to 70% and no significant valvular abnormalities noted. Patient does have dilated right ventricle. Patient is on Eliquis 2.5 mg twice daily and IV heparin has been discontinued. Cardiology and pulmonary is on board. Laboratory data showed sodium 127 potassium 5.9 chloride 91 bicarb is 31 BUN 52 and creatinine 1.19 and blood sugar is 130 WBC 15.2 hemoglobin 12.6 and platelets 346. 09/23/2021 Patient is currently lying in the bed. Awake alert but still short of breath and unable to speak full [place]. Feels very weak and not tolerating diet very well. Patient is being continued on IV steroids and duo nebs and antibiotics in form of ceftriaxone. Patient has been afebrile. Cough and unable to bring out any sputum. Patient is requiring 4 L of oxygen via nasal cannula. Otherwise patient is maintaining sinus rhythm. On anticoagulation with Eliquis. Patient went into rapid ventricular rate this morning again. Currently on Cardizem and metoprolol. Cardiology is on board. Continued on IV hydration. Laboratory test showed sodium 127 potassium 7.1, BUN 68 and creatinine 1.39 WBC trending down to 12.4 hemoglobin 13.0 and platelets 365 and blood sugar is 161 this morning. Current medications reviewed. Objective - Vital Signs Vital signs: Vital Signs Temp 98.1 F 09/23/21 20:00 Pulse 85 09/23/21 20:54 Resp 24 09/23/21 20:00 BP 117/71 09/23/21 20:00 Pulse Ox 90 L 09/23/21 20:00 FiO2 30 09/21/21 00:05 Intake & Output 09/23/21 09/23/21 09/24/21 06:59 18:59 06:59 Intake Total 1080 Output Total 400 950 Balance 680 -950 Intake: Intake, IV Titration 900 Amount Sodium Chloride 0.9% 1, 900 000 ml @ 10 mls/hr IV . Q24H [facility] Rx#:[id number] Oral 180 Output: Urine 400 950 Uretheral (Mays) 400 Other: Voiding Method Indwelling Catheter Indwelling Catheter Indwelling Catheter - Exam PHYSICAL EXAMINATION: Patient is lying in the bed comfortably, no acute distress, awake alert and oriented.cachectic. HEENT: Normocephalic. Neck is supple. Pupils reactive. Nostrils clear. Oral cavity is moist. Neck reveals no JVD, carotid bruits, or thyromegaly. CHEST EXAMINATION: Trachea is central. Symmetrical expansion. Bilateral diminished sounds.. CARDIAC: Normal S1, S2 with no gallops. No murmurs ABDOMEN: Soft. Bowel sounds normal. No organomegaly. No abdominal bruits. Extremities: reveal no edema. No clubbing or cyanosis Neurologically awake, alert, oriented x3 with well-coordinated movements. No focal deficits noted Skin: No rash or skin lesions. Psychiatric: Cooperative. Nonsuicidal Musculoskeletal: No joint swelling or deformity. Normal range of motion. - Labs CBC & Chem 7: 09/23/21 09:06 09/23/21 14:23 Labs: Abnormal Lab Results - Last 24 Hours (Table) 09/23/21 09/23/21 09/23/21 Range/Units 05:53 09:06 09:06 WBC 12.4 H (3.8-10.6) k/uL MCHC 30.7 L (31.0-37.0) g/dL Neutrophils # 11.4 H (1.3-7.7) k/uL Lymphocytes # 0.2 L (1.0-4.8) k/uL Sodium 127 L (137-145) mmol/L Potassium 7.1 H* (3.5-5.1) mmol/L Chloride 91 L (98-107) mmol/L BUN 68 H (7-17) mg/dL Creatinine 1.39 H (0.52-1.04) mg/dL Glucose 161 H (74-99) mg/dL POC Glucose (mg/dL) 231 H (75-99) mg/dL 09/23/21 09/23/21 09/23/21 Range/Units 12:07 14:23 16:49 WBC (3.8-10.6) k/uL MCHC (31.0-37.0) g/dL Neutrophils # (1.3-7.7) k/uL Lymphocytes # (1.0-4.8) k/uL Sodium (137-145) mmol/L Potassium 5.6 H (3.5-5.1) mmol/L Chloride (98-107) mmol/L BUN (7-17) mg/dL Creatinine (0.52-1.04) mg/dL Glucose (74-99) mg/dL POC Glucose (mg/dL) 225 H 134 H (75-99) mg/dL Assessment and Plan Assessment: Shortness of breath secondary to acute COPD exacerbation and CHF Acute on chronic hypoxic respiratory failure was on BiPAP but discontinued as the patient did not tolerate well. New onset atrial fibrillation with rapid regular rate Elevated troponin level possible type II SD Hyperkalemia due to acute kidney injury Lactic acidosis hypobulimic hyponatremia Chronic hypoxic respiratory failure on 2 L oxygen via nasal cannula. Hypothyroidism Mild to moderate protein calorie malnutrition. DVT prophylaxis patient is already on anticoagulation. Plan: Patient was given calcium gluconate IV and Kayexalate and repeat potassium level. c/w tele Patient will be continued on duo nebs and IV Solu-Medrol 60 mg every 6 hourly. On antibiotic in the form of Rocephin. Patient was started on oral Cardizem and anticoagulation with Eliquis. Patient is also on metoprolol 25 mg twice daily. Cardiology and pulmonary is on board. Prognosis guarded. CODE STATUS is DNR/DNI. Time with Patient: Greater than 30
[2021-09-24] MEDS: methylPREDNISolone SOD SUCCI 125 MG/2 ML VIAL IV SCH ×4 (00:24→17:21)
[2021-09-24] MEDS: MORPHINE SULFATE 2 MG/ML SYRINGE IVP PRN ×6 (00:25→18:15)
[2021-09-24] MEDS: SODIUM CHLORIDE 0.9% 1,000 ML IV SCH ×2 (04:23→17:19)
[2021-09-24 04:50] VITALS: RESP 20
[2021-09-24 06:03] LABS: Glucose,Whole Blood 205 mg/dL (75-99)
[2021-09-24] MEDS: INSULIN ASPART (NovoLOG) 100 UNIT/ML VIAL SQ SCH ×3 (06:19→17:20)
[2021-09-24] MEDS: PANTOPRAZOLE 40 MG TABLET PO SCH (06:20)
--- NOTE | 2021-09-24 06:56 | XR ---
EXAMINATION TYPE: XR chest 1V DATE OF EXAM: 09/24/2021 COMPARISON: 09/20/2021 HISTORY: Short of breath TECHNIQUE: Single view FINDINGS: There is mild infiltrate at the lung bases. There is some blunting of the costophrenic angl es. Heart is top normal in size. There is overall some flattening of the diaphragm. IMPRESSION: COPD. Pleural effusions and infiltrates at the lung bases probably related to some mild h eart failure. Pleural fluid and infiltrates increased compared to recent exam.
[2021-09-24 07:28] LABS: Basophils % (A) 0 %; Eosinophils % (A) 0 %; HCT 40.6 % (34.0-46.0); HGB 12.6 gm/dL (11.4-16.0); Lymphocytes # (A) 0.1 k/uL (1.0-4.8); Lymphocytes % (A) 1 %; MCH 30.2 pg (25.0-35.0); MCHC 31.2 g/dL (31.0-37.0); MCV 96.8 fL (80.0-100.0); Mean Platelet Volume 7.3; Monocytes # (A) 0.5 k/uL (0-1.0); Monocytes % (A) 5 %; Neutrophils # (A) 8.4 k/uL (1.3-7.7); Neutrophils % (A) 93 %; Platelet Count 342 k/uL (150-450); RBC 4.19 m/uL (3.80-5.40); RDW 14.5 % (11.5-15.5); WBC 9.1 k/uL (3.8-10.6)
[2021-09-24 07:42] LABS: Calcium 9.2 mg/dL (8.4-10.2); Potassium 5.3 mmol/L (3.5-5.1)
[2021-09-24] MEDS: FORMOTEROL FUMARATE 20 MCG/2 ML NEBU INHALATION SCH (08:03)
[2021-09-24] MEDS: BUDESONIDE 1 MG/2 ML NEBU INHALATION SCH (08:03)
[2021-09-24] MEDS: IPRATROPIUM-ALBUTEROL 3 ML NEB INHALATION SCH ×3 (08:05→15:52)
[2021-09-24] MEDS: TRELEGY INHALATION SCH (08:05)
[2021-09-24] MEDS: APIXABAN 2.5 MG TABLET PO SCH (08:46)
[2021-09-24] MEDS: DILTIAZEM ORAL 60 MG TAB PO SCH ×2 (08:46→17:20)
[2021-09-24] MEDS: METOPROLOL TARTRATE 25 MG TAB PO SCH (08:46)
[2021-09-24] MEDS: FUROSEMIDE 10 MG/ML 4 ML VIAL IV SCH (08:46)
[2021-09-24] MEDS: LEVOTHYROXINE 100 MCG TAB PO SCH (08:46)
[2021-09-24] MEDS: CYCLOBENZAPRINE 5 MG TAB PO SCH ×2 (08:48→17:20)
[2021-09-24] MEDS: HYDROcodone/APAP 5-325MG 1 EACH TAB PO SCH ×3 (08:48→17:21)
--- NOTE | 2021-09-24 10:36 | P.NPCON ---
History of Present Illness - Reason for Consult hyperkalemia - History of Present Illness Patient is an 85-year-old female with previous history of COPD, A. fib, admitted to the hospital with complaints of shortness of breath. She was maintained on BiPAP. Patient is being treated for COPD exacerbation. She was noted to have a serum potassium of 7.1 with creatinine of 1.39. This was treated with IV medications and serum potassium this morning is down to 5.3 with serum creatinine 0.7. Patient has an indwelling Mays catheter with fair urine output Blood pressure has been around 103-1 20 mmHg systolic O2 sats 98% maintained on 4 L nasal cannula. Family is present at bedside and it appears that they're deciding for comfort care measures starting sometime later on today Patient has been lethargic and has not been communicating much. Review of Systems As per HPI Past Medical History Past Medical History: COPD, Thyroid Disorder Additional Past Medical History / Comment(s): irregular heart beat History of Any Multi-Drug Resistant Organisms: None Reported Past Surgical History: Back Surgery, Cholecystectomy, Hysterectomy, No Surgical Hx Reported Additional Past Surgical History / Comment(s): thyroid partial removal Past Anesthesia/Blood Transfusion Reactions: No Reported Reaction Past Psychological History: No Psychological Hx Reported Smoking Status: Former smoker Past Alcohol Use History: None Reported, Occasional Past Drug Use History: None Reported - Past Family History Mother Family Medical History: Cancer Additional Family Medical History / Comment(s): Breast cancer, stomach cancer Father Family Medical History: Diabetes Mellitus, Myocardial Infarction ([place]) Medications and Allergies Home Medications Medication Instructions Recorded Confirmed Type Fluticasone/Umeclidin/Vilanter 1 puff INHALATION RT-DAILY 09/17/21 09/20/21 History [Trelegy Ellipta 100-62.5-25] Levothyroxine Sodium [Synthroid] 100 mcg PO DAILY 09/17/21 09/20/21 History Cyclobenzaprine [Flexeril] 5 mg PO TID 09/20/21 09/20/21 History HYDROcodone/APAP 5-325MG [Henning 1 tab PO QID 09/20/21 09/20/21 History 5-325] Apixaban [Eliquis] 2.5 mg PO BID #60 tab 09/22/21 Rx Allergies Allergy/AdvReac Type Severity Reaction Status Date / Time No Known Allergies Allergy Verified 09/20/21 15:41 Physical Exam Vitals: Vital Signs Temp Pulse Pulse Resp BP Pulse Ox 09/24/21 04:00 98.0 F 71 20 129/75 98 09/24/21 00:00 97.4 F L 74 16 103/67 91 L 09/23/21 20:54 85 09/23/21 20:46 84 09/23/21 20:45 84 09/23/21 20:37 85 09/23/21 20:00 98.1 F 84 24 117/71 90 L 09/23/21 16:00 97.8 F 80 18 121/63 92 L 09/23/21 15:57 70 09/23/21 15:47 74 09/23/21 12:00 96.3 F L 58 L 18 137/63 91 L 09/23/21 11:15 72 09/23/21 11:06 76 Intake and Output 09/23/21 09/24/21 09/24/21 22:59 06:59 14:59 Intake Total 0 Output Total 700 525 Balance -700 -525 Intake: Oral 0 Output: Urine 700 525 Uretheral (Mays) 525 Other: Voiding Method Indwelling Catheter Indwelling Catheter Patient is comfortable, lethargic, not communicating much Results - Lab Results Most recent lab results Calcium 9.2 mg/dL (8.4-10.2) 09/24/21 05:47 Magnesium 2.2 mg/dL (1.6-2.3) 09/22/21 08:42 09/24/21 05:47 09/24/21 05:47 Assessment and Plan Assessment: 1. Hyperkalemia associated with acute kidney injury currently improved 2. Acute kidney injury prerenal/ATN currently improved 3. COPD exacerbation 4. Acute on top of chronic systolic CHF 5. New onset A. fib with RVR Plan: Continue with IV Lasix Family is considering comfort care measures to be started sometime later on today.
[2021-09-24 10:39] VITALS: BP 125/79; PULSE 95; TEMP 96.4
--- NOTE | 2021-09-24 11:39 | P.PN ---
Subjective Progress Note Date: 09/24/21 85-year-old female patient with known history of COPD, oxygen dependent was coming into the hospital because of worsening shortness of breath. Denied having any chest pain. Some limited cough and congestion was present. She also had some increased lower extremity edema. No angina. No palpitations. No pleurisy. No hemoptysis. The patient was seen in the ED. The patient was afebrile. The patient was with an active stable. EKG showed a normal sinus rhythm, no acute ischemic changes. The patient had a white second of 11.2 with a hemoglobin 13.1 and a platelet count of 25. Her sodium was at 126, potassium level was at 5.2 with a BUN of 27 and a creatinine of 0.8. The patient had a bilirubin of 0.5, AST of 56, ALT of 40, alkaline phosphatase 127, the albumin was at 4.2, the proBNP level was 12,300 and a troponin was at 0.17. Lactic acid level was at 2.5. Chest x-ray was consistent with COPD. The patient was started on bronchodilators. The patient was started on empiric antibiotic coverage with IV Rocephin. The patient was also started on IV Solu-Medrol. This morning, the patient was seen on the medical floor and the patient was found to be in atrial fibrillation with rapid ventricular response. The patient was ready on IV heparin. I added Cardizem drip for rate control. Cardiac exam is in progress. She is not known to have any form of chronic cardiac disease or cardiac arrhythmias. She is oxygen dependent and she has been maintained on Trelegy Ellipta on outpatient basis regarding her COPD and she is an ex-smoker. The patient has been vaccinated for COVID 192. 09/22/2021, the patient is feeling slightly better compared to yesterday. She still short of breath with talking and having food and this is related to her advanced COPD. In terms of her COPD, she is on a combination of bronchodilators steroids. In terms of her cardiac status, the patient converted to normal sinus rhythm. She was taken off the amiodarone. The echocardiogram was completed yesterday and the patient was found to have a preserved LV function with an ejection fraction being hyperdynamic at 65-70%. The patient has no significant valvular abnormalities. There was some dilated patient of the RV related to chronic lung disease. No angina. No palpitations. She was unable to tolerate the BiPAP yesterday and based on that, the BiPAP was discontinued. Her condition is stable. She is along for medical evaluation with Eliquis 2.5 mg twice a day and this was started today. IV heparin was discontinued. She remains on IV Solu-Medrol. 09/23/2021, the patient is doing poor and her breathing is labored. The patient is unable to speak full sentences. Her speech is interrupted. At times she is confused. Oral intake is quite diminished and she is not meeting her caloric requirements. She is very weak and debilitated. She is cachectic. Her body mass index is 19.7. She has advanced COPD. Atrial fibrillation has converted is no sinus rhythm and the patient was started on anticoagulation with Eliquis. At the same time the patient is receiving DuoNeb nebulized treatments around the clock, IV Solu-Medrol to optimize her COPD. She is on IV Rocephin as an empiric antibiotic coverage. IV fluids are running at 130 mL an hour. 09/24/2021, the patient is doing well. She is very lethargic. Arousable. She goes back to sleep if left unstimulated. Breathing remains labored. Family is at the bedside. Unable to eat adequately. Unable to move around. Unable to perform activities of daily today life. Unable to feed herself. Her speech is very limited and interrupted. Atelectatic discussion with the patient's family, and we have decided to go along the route of hospice care. The family was very much agreeable. Blood work from today shows a BUN of 67 with a creatinine of 0.7 and the patient is white cell count is at 9.4 with a hemoglobin of 12.6. No other significant events over the last night. The patient received a dose of morphine 2 mg IV which which made her very comfortable this morning. Objective - Vital Signs Vital signs: Vital Signs Temp 98.0 F 09/24/21 04:00 Pulse 71 09/24/21 04:00 Resp 20 09/24/21 04:00 BP 129/75 09/24/21 04:00 Pulse Ox 98 09/24/21 04:00 FiO2 30 09/21/21 00:05 Intake & Output 09/23/21 09/24/21 09/24/21 18:59 06:59 18:59 Intake Total 0 Output Total 950 525 Balance -950 -525 Intake: Oral 0 Output: Urine 950 525 Uretheral (Mays) 525 Other: Voiding Method Indwelling Catheter Indwelling Catheter - Exam General appearance: alert, the patient is mild degree of respiratory respiratory distress, currently on 2 L of O2 nasal cannula with a pulse of 92%, body mass index is 19.7 and she is quite cachectic and emaciated. Head exam: Present: atraumatic, normocephalic Eye exam: Present: normal appearance, PERRL ENT exam: Present: normal exam Neck exam: Present: normal inspection. Absent: tenderness, meningismus Respiratory exam: Present: respiratory distress, accessory muscle use, decreased breath sounds and the patient scattered expiratory wheezes throughout the lung [place] Cardiovascular Exam: Cardiac exam revealed the PMI to be normally situated and sized. The rhythm was regular and no extrasystoles were noted during several minutes of auscultation. The first and second heart sounds were normal and physiologic splitting of the second heart sound was noted. There were no murmurs, rubs, clicks, or gallops. GI/Abdominal exam: Present: soft. Absent: distended, tenderness, guarding Extremities exam: Present: normal inspection, normal capillary refill. Absent: pedal edema, calf tenderness Neurological exam: Present: alert, oriented X3, CN II-XII intact. Absent: motor sensory deficit Psychiatric exam: Present: normal affect, normal mood Skin exam: Present: warm, dry, intact. Absent: cyanosis, diaphoretic - Labs CBC & Chem 7: 09/24/21 05:47 09/24/21 05:47 Labs: Abnormal Lab Results - Last 24 Hours (Table) 09/23/21 09/23/21 09/23/21 Range/Units 09:06 09:06 12:07 WBC 12.4 H (3.8-10.6) k/uL MCHC 30.7 L (31.0-37.0) g/dL Neutrophils # 11.4 H (1.3-7.7) k/uL Lymphocytes # 0.2 L (1.0-4.8) k/uL Sodium 127 L (137-145) mmol/L Potassium 7.1 H* (3.5-5.1) mmol/L Chloride 91 L (98-107) mmol/L Carbon Dioxide (22-30) mmol/L BUN 68 H (7-17) mg/dL Creatinine 1.39 H (0.52-1.04) mg/dL Glucose 161 H (74-99) mg/dL POC Glucose (mg/dL) 225 H (75-99) mg/dL 09/23/21 09/23/21 09/24/21 Range/Units 14:23 16:49 05:47 WBC (3.8-10.6) k/uL MCHC (31.0-37.0) g/dL Neutrophils # 8.4 H (1.3-7.7) k/uL Lymphocytes # 0.1 L (1.0-4.8) k/uL Sodium (137-145) mmol/L Potassium 5.6 H (3.5-5.1) mmol/L Chloride (98-107) mmol/L Carbon Dioxide (22-30) mmol/L BUN (7-17) mg/dL Creatinine (0.52-1.04) mg/dL Glucose (74-99) mg/dL POC Glucose (mg/dL) 134 H (75-99) mg/dL 09/24/21 09/24/21 Range/Units 05:47 05:59 WBC (3.8-10.6) k/uL MCHC (31.0-37.0) g/dL Neutrophils # (1.3-7.7) k/uL Lymphocytes # (1.0-4.8) k/uL Sodium 133 L (137-145) mmol/L Potassium 5.3 H (3.5-5.1) mmol/L Chloride 91 L (98-107) mmol/L Carbon Dioxide 37 H (22-30) mmol/L BUN 67 H (7-17) mg/dL Creatinine (0.52-1.04) mg/dL Glucose 196 H (74-99) mg/dL POC Glucose (mg/dL) 205 H (75-99) mg/dL Assessment and Plan Plan: Acute COPD exacerbation with secondary shortness of breath, rule out underlying congestion heart failure. The patient has advanced COPD with chronic hypoxic respiratory failure. She is quite cachectic and on today's evaluation her breathing remains labored and on and off she is using his muscles of breathing. Family is at the bedside. Her performance and functional status is extremely poor and the patient is very weak and on and off confused and debilitated at this point in time. The family is considering hospice/comfort care measures. We will avoid his switched her CODE STATUS to DNR/DNI. Chronic hypoxic respiratory failure maintained on O2 at 2 L per minute nasal cannula rates to COPD New-onset atrial fibrillation with rapid ventricular response, currently off Cardizem drip and IV heparin, rate is controlled and the patient is currently on oral Eliquis. Hypothyroidism Mild lactic acidosis Hyponatremia Abnormal troponin, rule out underlying non-STEMI Plan Poor prognosis with a DO NOT INTUBATE CODE STATUS On today's evaluation, patient's condition remains unchanged and the patient's family understands that this is an advanced/end-stage lung disease and the patient may need enough left clear. There are very much agreeable. She has already received a dose of morphine earlier today which gave her significant amount of symptomatically. Based on all this, and based on her advanced lung disease and very poor baseline performance and functional status, hospice will be consulted and the patient patient's family is interested in taking the patient home along with hospice care. Appropriate consultation was placed.
--- NOTE | 2021-09-24 11:54 | P.PN ---
Subjective HISTORY OF PRESENT ILLNESS: This is a 85-year-old female with a past medical history significant for COPD with home oxygen use and hypothyroidism. Patient does not follow with a transportation engineering technician. We have been asked to see the patient in consultation for elevated troponins. Patient examined at the bedside. patient presented to the hospital with a chief shortness breath. She denies chest pain or pressure. She denies dizziness or lightheadedness. The patient was found to have abnormal troponins and was started on IV heparin. This morning she is tachycardic. * EKG reveals sinus mechanism with no signs of acute ischemia * Chest xray negative for acute process * Laboratory data: WBC 7.7. Hemoglobin 12.3. Platelet count 280. Sodium 126. Potassium 5.1. BUN 24. Creatinine 0.69. Lactic acid 2.2. Troponin 0.172. 0.143. 0.130. * Current home cardiac medications include none 09/22/2021 Patients repeat EKG yesterday revealed afib with RVR. No history of afib previously. Patient was started on IV Cardizem. She remains in atrial fibrill ation this morning with controlled when she tolerates. She remains on IV heparin. She denies any chest pain or pressure. She denies shortness of breath. Echocardiogram completed revealing ejection fraction 65-70% with mild tricuspid regurgitation and moderate pulmonary hypertension. 09/23 Patient seen and examined. Patient more lethargic and only able to answer in 1- 2 word sentences. Family concerned that she has been somewhat slurring her words and more lethargic. She is not currently drinking much. She has had increase in creatinine up to 1.4 from baseline 0.7 with increase in potassium up to 7.1. This is been treated medically. Echo performed yesterday shows hyperdynamic 65%. There was mention of right ventricle being dilated as well as pulmonary hypertension with RVSP of 47. Has remained in sinus. 09/24 Patient seen and examined. Patient much more lethargic today and family has made decision to pursue palliative approach. PHYSICAL EXAM: VITAL SIGNS: Reviewed. GENERAL: Well-developed, ill appearing, frail, lethargic HEENT: Head is normocephalic. Pupils are equal, round. Sclerae anicteric. Mucous membranes of the mouth are moist. Neck supple. No JVD or thyromegaly LUNGS: Respirations even and unlabored. Lungs essentially clear to auscultation bilaterally. HEART: Regular rate and rhythm. S1 and S2 heard. ABDOMEN: Soft. Nondistended. Nontender. EXTREMITIES: Normal range of motion. No clubbing or cyanosis. Peripheral pulses intact. No lower extremity edema NEUROLOGIC: Lethargic, appears to be actively dying ASSESSMENT: Shortness of breath Acute on chronic hypoxic respiratory failure related to COPD New onset A. fib with RVR, currently sinus History of COPD with home oxygen use Abnormal troponins, type 2 mechanism related to hypoxia, SOFYA Pulmonary hypertension with concern of RV dilation SOFYA Hyperkalemia PLAN: Patient with deterioration over the last 24 hours and appears lethargic. Agree with palliative approach. All questions answered with family. Please call with any questions. Objective - Vital Signs Vital signs: Vital Signs Temp 96.4 F L 09/24/21 08:30 Pulse 95 09/24/21 08:30 Resp 20 09/24/21 08:30 BP 125/79 09/24/21 08:30 Pulse Ox 95 09/24/21 08:30 FiO2 30 09/21/21 00:05 Intake & Output 09/23/21 09/24/21 09/24/21 18:59 06:59 18:59 Intake Total 0 Output Total 698 442 7491 Balance -950 -525 -1000 Intake: Oral 0 Output: Urine 193 393 [id number] Uretheral (Mays) 525 Other: Voiding Method Indwelling Catheter Indwelling Catheter Indwelling Catheter # Bowel Movements 0 - Labs CBC & Chem 7: 09/24/21 05:47 09/24/21 05:47 Labs: Abnormal Lab Results - Last 24 Hours (Table) 09/23/21 09/23/21 09/23/21 Range/Units 12:07 14:23 16:49 Neutrophils # (1.3-7.7) k/uL Lymphocytes # (1.0-4.8) k/uL Sodium (137-145) mmol/L Potassium 5.6 H (3.5-5.1) mmol/L Chloride (98-107) mmol/L Carbon Dioxide (22-30) mmol/L BUN (7-17) mg/dL Glucose (74-99) mg/dL POC Glucose (mg/dL) 225 H 134 H (75-99) mg/dL 05/29/22 05/29/22 05/29/22 Range/Units 05:47 05:47 05:59 Neutrophils # 8.4 H (1.3-7.7) k/uL Lymphocytes # 0.1 L (1.0-4.8) k/uL Sodium 133 L (137-145) mmol/L Potassium 5.3 H (3.5-5.1) mmol/L Chloride 91 L (98-107) mmol/L Carbon Dioxide 37 H (22-30) mmol/L BUN 67 H (7-17) mg/dL Glucose 196 H (74-99) mg/dL POC Glucose (mg/dL) 205 H (75-99) mg/dL
[2021-09-24] MEDS ORDERED: LORazepam 2 MG/ML INJ IV PRN (14:31)
== END 2021-09-24 18:29 | disposition hospice, home (50) | DRG 190 ==
LOC: EC 13:58 → 3SCARD 16:26
PROVIDERS: ADMIT Hospitalist; ATTEND Hospitalist
DX: J44.1 Chronic obstructive pulmonary disease with (acute) exacerbation (principal); J96.21 Acute and chronic respiratory failure with hypoxia; N17.0 Acute kidney failure with tubular necrosis; I21.A1 Myocardial infarction type 2; I50.23 Acute on chronic systolic (congestive) heart failure; R64 Cachexia; Z68.1 Body mass index [BMI] 19.9 or less, adult; E44.0 Moderate protein-calorie malnutrition; E87.1 Hypo-osmolality and hyponatremia; E87.2 Acidosis; Z51.5 Encounter for palliative care; Z66 Do not resuscitate; M25.512 Pain in left shoulder; E03.9 Hypothyroidism, unspecified; M54.9 Dorsalgia, unspecified; M25.511 Pain in right shoulder; E87.5 Hyperkalemia; I07.1 Rheumatic tricuspid insufficiency; Z99.81 Dependence on supplemental oxygen; G89.29 Other chronic pain; I27.20 Pulmonary hypertension, unspecified; R00.1 Bradycardia, unspecified; I48.91 Unspecified atrial fibrillation; Z79.01 Long term (current) use of anticoagulants; Z79.890 Hormone replacement therapy; Z80.0 Family history of malignant neoplasm of digestive organs; Z80.3 Family history of malignant neoplasm of breast; Z82.49 Family history of ischemic heart disease and other diseases of the circulatory system; Z83.3 Family history of diabetes mellitus; Z87.891 Personal history of nicotine dependence; Z90.49 Acquired absence of other specified parts of digestive tract; Z90.710 Acquired absence of both cervix and uterus
CPT/HCPCS: 36415; 71045; 80048; 80053; 83605; 83735; 83880; 84132; 84484; 85025; 85610; 85730; 93005; 93306; 94640; 94660; 94760; 96374; 96375; 96376; 99291